=== PATIENT | female | born 1975 | race Caucasian/White ===

== ENCOUNTER 2020-02-07 00:07 | Emergency (ER) | payer SELFPAY ==
--- NOTE | ~2020-02-07 | XR_ITS ---
XR finger 2nd LT min 2V DATE: 02/07/2020 00:43 INDICATION: Finger caught in which. Traumatic amputation. TECHNIQUE: 4 views COMPARISON: None FINDINGS: There is dramatic amputation of the large majority of the tuft of the distal phalanx and di stal soft tissues of the second digit. No radiopaque soft tissue foreign body. No other fracture or any dislocation. IMPRESSION: Traumatic amputation of distal soft tissues and most of the tuft of the distal phalanx of the second digit Reviewed, dictated and finalized at location A.
[2020-02-07 00:13] VITALS: BP 160/89; PULSE 94; RESP 18; TEMP 36.5; O2SAT 100
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
[2020-02-07 00:47] VITALS: BP 152/95; PULSE 78; RESP 18; O2SAT 99
[2020-02-07] MEDS: TETANUS,DIPHTHERIA,AC PERTUSSIS ADULT 0.5 ML (ADACEL) IM (01:05)
--- NOTE | 2020-02-07 01:22 | PC.NURSE ---
Wet gauze and pressure dressing applied to left hand and index finger, continuously bleeding. Physician aware.
[2020-02-07 01:47] VITALS: BP 126/74; PULSE 86; RESP 18; O2SAT 99
== END 2020-02-07 02:14 | disposition short-term general hospital (02) ==
PROVIDERS: Emergency Provider Emergency Medicine
DX: S68.110A Complete traumatic metacarpophalangeal amputation of right index finger, initial encounter (principal); Z23 Encounter for immunization; W26.8XXA Contact with other sharp object(s), not elsewhere classified, initial encounter
CPT/HCPCS: 73140; 90471; 90715; 96365; 99284; J0690

== ENCOUNTER 2024-04-17 14:06 | Emergency (ER) | payer MEDICARE, MEDICAID, SELFPAY ==
--- NOTE | 2024-04-17 14:09 | ED.SKABFB ---
HPI - Skin/Abscess/Foreign Bdy General Chief complaint: Skin/Abscess/Foreign Body Stated complaint: Rash Time Seen by Provider: 04/17/24 14:08 Source: patient Mode of arrival: ambulatory Limitations: no limitations History of Present Illness HPI narrative: Nikki is a 49-year-old female patient presenting to the clinic today with complaints of a rash in her groin. She reports they 1st noticed it yesterday. States she has not felt well over the past week. History of autonomic dysreflexia disease. Thinks that she may have a yeast infection in her groin. Related Data Home Medications Medication Instructions Recorded Confirmed methenamine hippurate 1 gram tablet 1 g PO BID 04/17/24 04/17/24 mirabegron 25 mg tablet,extended 25 mg PO DAILY 04/17/24 04/17/24 release 24 hr (Myrbetriq) tizanidine 4 mg tablet 8 mg PO TID PRN muscle spasms 04/17/24 04/17/24 Allergies Allergy/AdvReac Type Severity Reaction Status Date / Time No Known Allergies Allergy Verified 04/17/24 14:09 Review of Systems Review of Systems: Pertinent positives per HPI. Patient denies any fever, chills, headache, visual changes, dizziness, cough, runny nose, sore throat, shortness of breath, chest pain, palpitations, nausea, vomiting, diarrhea, constipation, abdominal pain, or any urinary issues. PMFSH Past Medical History Medical History Healthy female Surgical History Surgical History History of dilation and curettage Hx of tubal ligation Social History Social History Smoking status: Unknown if ever smoked Gender identity (if verbalized by the patient): Female Comments At the time of my signature, I reviewed and agree with the nursing past medical, surgical, social, and family history. There is no relevant family history pertinent to the patient complaint. Exam Narrative: General: Well-developed, well nourished, in no apparent distress Head: Normocephalic, atraumatic. Cardio: Regular rate and rhythm, s1 and s2 normal, no murmur appreciated. Resp: Clear to auscultation bilaterally, no rhonchi, rales, wheezing or rubs. Integumentary: [place], warm, and dry, intact without lesion, red, warm, glistening beffy rash to the bilateral groin folds Course Course Emergency Course: Portions of this record may have been created with voice recognition software. Level of Care: Express Care Visit Vital Signs Vital signs: Vital signs reviewed MDM - Skin/Abscess/Foreign Bdy MDM Narrative Medical decision making narrative: At the time of visit patient is resting comfortably on the exam table. Patient appears to be nontoxic. Plan: I suspect patient has tinea crucians. Prescription for nystatin and Diflucan was sent to the pharmacy Supportive measures were discussed with the patient and they voiced understanding discharge instructions and agrees to treatment plan. Return precautions reviewed Differential Diagnosis Differential diagnosis: Likely abscess of skin or subcutaneous tissue, viral exanthem, dermatophytosis, urticaria, herpes zoster, allergic reaction to drug, cellulitis, eczema, insect bites, impetigo and contact dermatitis Discharge Plan Discharge Clinical Impression: Lorie infection of genital region Patient Disposition: Home, Self-Care Condition: Stable Instructions: Antibiotic Form, Skin Yeast Infection (ED) Additional Instructions: Increase fluids and stay well hydrated Keep the area clean and dry Apply nystatin powder as directed Take fluconazole 200 mg weekly x4 weeks Follow-up with your primary care as needed Prescriptions: New nystatin 100,000 unit/gram powder 1 applic topical QID 14 Days Qty: 60 0RF fluconazole 200 mg tablet 200 mg PO WEEKLY 28 Days Qty: 4 0RF No Action tizanidine 4 mg tablet
[2024-04-17 14:20] VITALS: BP 100/58; PULSE 106; RESP 18; TEMP 36.5; O2SAT 98
== END 2024-04-17 14:46 | disposition home or self-care (01) ==
PROVIDERS: Emergency Provider Nurse Practitioner Family; PCP Physician Assistant
DX: B37.49 Other urogenital candidiasis (principal); G90.4 Autonomic dysreflexia
CPT/HCPCS: 99213; G0463

== ENCOUNTER 2024-12-06 12:29 | Emergency (ER) | payer MEDICARE, MEDICAID, SELFPAY ==
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
[2024-12-06 12:47] VITALS: BP 118/78; PULSE 87; RESP 16; TEMP 36.6; O2SAT 98
[2024-12-06 13:27] LABS: EDUAAPPEAR Clear; EDUABILI Negative (Negative); EDUABLOOD 3+ (Negative); EDUACOLOR1 Yellow; EDUAGLUCOSE Negative (Negative); EDUAKETONE Negative (Negative); EDUALEUKO 2+ (Negative); EDUANITRATE Negative (Negative); EDUAPROTEIN Negative (Negative); EDUASPGRAVITY 1.015; EDUAUROBILI 0.2
--- NOTE | 2024-12-06 16:02 | PC.NURSE ---
1340: Suprapubic catheter urine bag removed and tube clamped for 15 minutes. Tip cleaned with betadine and urine collected into sterile urine cup. Urine bag then replaced with no issues.
== END 2024-12-06 13:40 | disposition home or self-care (01) ==
PROVIDERS: Emergency Provider Nurse Practitioner Family; PCP Physician Assistant
DX: T83.518A Infection and inflammatory reaction due to other urinary catheter, initial encounter (principal); N39.0 Urinary tract infection, site not specified
CPT/HCPCS: 81003; 87086; 99213; G0463

== ENCOUNTER 2025-03-10 23:12 | Emergency (ER) | payer MEDICARE, MEDICAID, SELFPAY ==
--- OUTSIDE RECORDS SUMMARY | 2025-03-10 23:15 | XMS_ITS | Encounter Summary ---
Author Organization [facility] Address [address] [place] [address] Phone Care Team Providers Care Director Of Archives Name Role Phone Provider, None Primary Care Provider Unavailabl e Encounter Details Date Type Department Care Team (Late st Contact Info) Description 12/27/2023 Behavioral Health Patient Survey [facility] [address] [place] [id number] Umair Li PSYD [place] Social History Tobacco Use Types Packs/Day Years Used Date Smoking Tobacco: Former Cigarettes Q uit: 08/23/2020 Smokeless Tobacco: Never Alcohol Use Standard Drinks/Week Comments Yes 0 (1 standard drink = 0.6 oz pur e alcohol) Very rare, about 1x per year Sexually Active Control Partners Comments Not Currently Male Patient is cur rently unable to feel sensation in lower part of body, and sexual activity with is sharply reduced. Comments Unknown Sex and Gender Information Value Date Recorded Sex Assigned at Not on file Legal Sex Female 2:41 PM CDT Gender Identity Not on file Sexual Orientation Not on file documented as of this encounter Plan of Treatment Upcoming Encounters Date Type Department Care Team (Latest Contact Info) Description 03/29/2025 1:00 PM CDT Outpatient Clinic Visit [facility] [address] [place] [phone] Umair Li PSYD [place] Discharge Disposition: Discharged to home or Selfcare 04/28/2025 1:45 PM CDT Outpatient Clinic Visit [facility] [address] [place] [address] Umair Li PSYD [place] Discharge Disposition: Discharged to home or Selfcare documented as of this encounter Goals Goal Patient Goal Type Associated Problems Recent Progress Patient-Stated? Author ANXIETY Anxiety On track( 025 1:04 PM CDT) No Umair Li PSYD Note: Patient will reduce her symptoms of anxiety to manageable levels and learn new coping skills for dealing with life post-injury. Depression Depression On track( 025 1:04 PM CDT) Yes Umair Li PSYD Note: Patient states she wishes to reduce her feelings of sadness and learn to control her emotions. She no longer wishes to live in fear. documented as of this encounter Visit Diagnoses Not on filedocumented in this encounter Care Teams Director Of Archives Relationship Specialty Start Date End Date Provider, None [place] PCP - General 05/02/22 documented as of this encounter
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
--- OUTSIDE RECORDS SUMMARY | 2025-03-10 23:15 | XMS_ITS | Clinical Summary ---
Author Organization [facility] Address [address] [place] [address] Care Team Providers Care Floral Manager Name Role Phone Provider, None Primary Care Provider Unavailabl e Allergies No known active allergies Medications No known medications Active Problems Problem Noted Date Diagnosed Date Paralysis Encounters Date Type Department Care Team Description 02/23/2025 1:00 PM CDT Outpatient Clinic [facility] [address] [place] [phone] Umair Li PSYD Major depressive disorder, recurrent, mild (HCC) (Primary Dx) Discharge Disposition: Discharged to home or Selfcare 02/23/2025 Travel 02/02/2025 1:00 PM CDT Outpatient Clinic Visit [facility] [address] [place] [phone] Umair Li PSYD Major depressive disorder, recurrent, mild (HCC) (Primary Dx) Discharge Disposition: Discharged to home or Selfcare 02/01/2025 Travel 01/05/2025 1:00 PM ACCOUNT EXECUTIVE SALES REPRESENTATIVE Outpatient Clinic Visit [facility] [address] [place] [address] Umair Li PSYD Adjustment disorder with depressed mood (Primary Dx) Discharge Disposition: Discharged to home or Selfcare 01/03/2025 Travel from Last 3 Months Family History Medical History Relation Name Comments Anxiety disorder Mother Ursula Relation Name Status Comments Brother 1 Alive Brother 2 Alive Daughter 1 Alive Daughter 2 Alive Father King Alive Mother Ursula Alive Sister 1 Alive Sister 2 Alive Sister 3 Alive Son 1 Alive Son 2 Alive Social History Tobacco Use Types Packs/Day Years Used Date Smoking Tobacco: Former Cigarettes Q uit: 08/23/2020 Smokeless Tobacco: Never Tobacco Cessation:Counseling Given: No Alcohol Use Standard Drinks/Week Comments Yes 0 [...] on file Sexual Orientation Not on file Plan of Treatment Upcoming Encounters Date Type Department Care Team (Latest Contact Info) Description 03/29/2025 1:00 PM CDT [facility] [address] [place] [address] Umair Li PSYD [place] Discharge Disposition: Discharged to home or Selfcare 04/28/2025 1:45 PM CDT [facility] [address] [place] [address] Umair Li PSYD [place] Discharge Disposition: Discharged to home or Selfcare Health Maintenance Due Date Last Done Comments Hepatitis C Virus (HCV) Screening 1973 Hepatitis B Immunization (1 of 3 - 19+ 3-dose series) 1992 Pap Smear 1994 Cervical Cancer Screening (CCS) 2003 HPV/Cotest 2003 Colonoscopy 2018 Colorectal Cancer Screening 2018 Cologuard 2023 Immunochemical Fecal Occult Blood 2023 Pneumococcal Immunization (5 0+ years) (1 of 1 - PCV) 2023 Zoster Immunization (1 of 2) 2023 SARS-COV-2 Immunization (3 - 2023- season) 2024 03/22/2021, 03/02/2021 Influenza Immunization (Seas on Ended) 2025 Mammogram 02/01/2026 02/01/2025 Respiratory Syncytial Virus (RSV) Immunization (Adult) (1 - 1-dose 75+ series) 2048 DTaP/Tdap/Td Immunization Discontinued 02/07/2020 TdaP Immunization Completed 02/07/2020 Discussion re Starting/Frequency of Mammograms Discontinued 02/01/2025 Meningococcal Immunization (ACWY) Aged Out No longer eligible based on patient's age to complete this topic Rotavirus Immunization Aged Out No lo nger eligible based on patient's age to complete this topic Goals Goal Patient Goal Type Associated Problems Recent Progress Patient-Stated? Author ANXIETY Anxiety On track( 1:04 PM CDT) No Umair Li PSYD Note: Patient will reduce her symptoms of anxiety to manageable levels and learn new coping skills for dealing with life post-injury. Behavioral Health Behavioral Health On track( 025 1:04 PM CDT) Yes Umair Li PSYD Note: I want my smile back, by which she meant to return to a level of general happiness. Depression Depression On track( 025 1:04 PM CDT) Yes Umair Li PSYD Note: Patient states she wishes to reduce her feelings of sadness and learn to control her emotions. She no longer wishes to live in fear. Insurance [place] [address] Care Teams Floral Manager Relationship Specialty Start Date End Date Provider, None [place] PCP - General 05/02/22
--- OUTSIDE RECORDS SUMMARY | 2025-03-10 23:15 | XMS_ITS | Encounter Summary ---
Author Organization [facility] Address [address] [facility] [place] [address] Phone Care Team Providers Care Construction Or Leak Gang Laborer Name Role Phone Provider, None Primary Care Provider Unavailabl e Encounter Details Date Type Department Care Team ( Contact Info) Description 09/10/2023 Behavioral Health Patient Survey [facility] [address] [place] [phone] Umair Li, ISRAEL MD Social History Tobacco Use Types Packs/Day Years [...] on file Sexual Orientation Not on file COVID-19 Exposure Response Date Recorded In the last 10 days, have yo u been in contact with someone who was confirmed or suspected to have Coronavirus/COVID-19? No / Unsure 09/10/2023 10:51 AM CDT documented as of this encounter Plan of Treatment Upcoming Encounters Date Type Department Care Team (Latest Contact Info) Description 03/29/2025 1:00 PM CDT Outpatient Clinic Visit [facility] [address] [facility] [place] [address] Umair Li PSYD [place] Discharge Disposition: Discharged to home or Selfcare 04/28/2025 1:45 PM CDT Outpatient [facility] [address] [facility] [place] [address] Umair Li PSYD [place] Discharge Disposition: Discharged [...] on filedocumented in this encounter Care Teams Construction Or Leak Gang Laborer Relationship Specialty Start Date End Date Provider, None [place] PCP - General 05/02/22 documented as of this encounter
--- OUTSIDE RECORDS SUMMARY | 2025-03-10 23:15 | XMS_ITS | Encounter Summary ---
Author Organization [facility] Address [address] [facility] [place] [address] Phone Care Team Providers Care Motor Equipment Captain Name Role Phone Provider, None Primary Care Provider Unavailabl e Encounter Details Date Type Department Care Team (Late st Contact Info) Description 02/05/2024 Behavioral Health Patient Survey [facility] [address] [place] [phone] Umair Li PSYD [place] Social History Tobacco [...] 03/29/2025 1:00 PM CDT Outpatient Clinic Visit [facility] [address] [place] [address] Umair Li PSYD [place] Discharge Disposition: Discharged to home or Selfcare 04/28/2025 1:45 PM CDT Outpatient Clinic Visit [facility] [address] [place] [address] Umair Li PSYD [place] Discharge Disposition: Discharged to home or Selfcare [...] on filedocumented in this encounter Care Teams Motor Equipment Captain Relationship Specialty Start Date End Date Provider, None [place] PCP - General 05/02/22 documented as of this encounter
--- OUTSIDE RECORDS SUMMARY | 2025-03-10 23:15 | XMS_ITS | Encounter Summary ---
Author Organization [facility] Address [address] [facility] [place] [address] Phone Care Team Providers Care Rehabilitator Name Role Phone Provider, None Primary Care Provider Unavailabl e Encounter Details Date Type Department Care Team (Late st Contact Info) Description 04/02/2024 Behavioral Health Patient Survey [facility] [address] [place] [phone] Umair Li PSYD [place] Social History Tobacco Use Types Packs/Day Years [...] on file documented as of this encounter Functional Status * Over the past 2 weeks, how often have you been bothered by any of the following problems? Question Answer Date of Assessment Author Patient Health Questionnaire-2 Score 0 04/02/2024 1:00 PM CDT Umair Li Sa, PSYD * If you checked off any problems on this questionnaire so far, Question Answer Date of Assessment Author How difficult have these problems made it for you to do your work, take care of things at home, or get along with other people? Somewhat difficult 04/02/2024 1:00 PM CDUmair Geiger PSYD * Over the last 2 weeks, how often have you been bothered by any of the following problems? Question Answer Date of Assessment Author Feeling nervous, anxious, or on edge 1 04/02/2024 1:00 PM CDUmair Geiger, PSYD Not being able to stop or control worrying 1 04/02/2024 1:00 PM Umair Low, PSHERMELINDA Worrying too much about different things 3 04/02/2024 1:00 PM Umair Low PSYD Trouble relaxing 1 04/02/2024 1:00 PM CDUmair Wallace PSYD Being so restless that it is hard to sit still 0 04/02/2024 1:00 PM Umair Low PSYD Becoming easily annoyed or irritable 0 04/02/2024 1:00 PM Umair Low, PSHERMELINDA Feeling afraid as if something awful might happen 0 04/02/2024 1:00 PM Umair Low PSYD GELA-7 Total Score 6 04/02/2024 1:00 PM Umair Low PSYD * Over the past 2 weeks, how often have you been bothered by any of the following problems? Question Answer Date of Assessment Author Little interest or pleasure in doing things Not at all 04/02/2024 1:00 PM Umair Low PSYD Feeling down, depressed, or hopeless Not at all 04/02/2024 1:00 PM Umair Low PSYD Trouble falling or staying asleep, or sleeping too much Not at all 04/02/2024 1:00 PM Umair Low PSYD Feeling tired or having little energy Several days 04/02/2024 1:00 PM Umair Low PSYD Poor appetite or overeating Not at all 04/02/2024 1: 00 PM CDT Umair Li PSYD Feeling bad about yourself - or that you are a failure or have let yourself or your family down Several days 04/02/2024 1:00 PM LELOT Umair Li PSYD Trouble concentrating on things, such as reading the newspaper or watching television Not at all 04/02/2024 1:00 PM LELOT Umair Li PSYD Moving or speaking so slowly that other people could have noticed? Or the opposite - being so fidgety or restless that you have been moving around a lot more than usual. Several days 04/02/2024 1:00 PM LELOT Umair Li PSYD Thoughts that you would be better off or hurting yourself in some way Not at all 04/02/2024 1:00 PM LELOT Umair Li PSYD Patient Health Questionnaire-9 Score 3 04/02/2024 1:00 PM CDT Umair Li Sa, PSYD documented as of this encounter Plan of Treatment Upcoming Encounters Date Type Department Care Team (Latest Contact Info) Description 03/29/2025 1:00 PM CDT Outpatient Clinic Visit [facility] [address] [place] [phone] Umair Li PSYD [place] Discharge Disposition: Discharged to home or Selfcare 04/28/2025 1:45 PM CDT Outpatient Clinic Visit [facility] [address] [place] [phone] Umair Li PSYD [place] Discharge Disposition: Discharged [...] on filedocumented in this encounter Care Teams Rehabilitator Relationship Specialty Start Date End Date Provider, None [place] PCP - General 05/02/22 documented as of this encounter
--- OUTSIDE RECORDS SUMMARY | 2025-03-10 23:15 | XMS_ITS | Referral Summary ---
Author Organization [facility] Address [address] [place] [address] Care Team Providers Care Investment Executive Name Role Phone Brit Hong Primary Care Provider + Shaista Maria DPT Unavail able Encounters Date Type Department Care Team Description 03/04/2025 8:22 PM CDT - 03/04/2025 10:24 PM CDT Emergency [facility] Emergency Department [address] [place] [address] Suprapubic catheter dysfunction, initial encounter (Primary Dx); Abnormal urinalysis Discharge Disposition: Discharge to home or self care 02/18/2025 Telephone [facility] [address] [place] [address] Advanced Medicine 11th [place] [address] [place] [id number] Federico Mark 02/17/2025 10:20 AM CDT Telemedicine [facility] [address] [facility] [address] [place] [address] Aftab Suazo MD Neurogenic bladder (Primary Dx); Obstruction of Moctezuma catheter, subsequent encounter 02/09/2025 Telephone [facility] [address] [facility] [address] [place] [address] Mckenzie Campos MD 02/09/2025 Telephone [facility] [address] [place] [address] Miesha Modi, [facility] 02/01/2025 2:11 PM CDT - 02/01/2025 11:59 PM CDT Hospital Encounter [facility] [address] [place] [address] Krysta Chung MD Encounter for well woman exam; Encounter for screening mammogram for malignant neoplasm of breast Discharge Disposition: Discharge to home or self care from Last 3 Months Allergies Active Allergy Reactions Criticality Noted Date Comments Cat Dander Itching Low 08/01/2022 Medications Vitamin C 500 mg tablet,chewable Take 1 tablet/chew tab (500 mg total) by mouth every morning 09/29/20 20 Active albuterol 2.5 mg /3 mL (0.083 %) nebulizer solution Inhale 3 mL (2.5 mg total) every 6 (six) hours as needed for shortness of breath or wheezing 08/01/20 21 Active HYDROcodone-acetam inophen (VICODIN) 10-300 mg per tabletIndications: Pain Take 1 tablet by mouth daily as needed Active calcium citrate-vitamin D2 250 mg-2.5 mcg (100 unit) per tabletIndications: Hypocalcemia Prevention,Prevent ion of Vitamin D Deficiency Take 1 tablet by mouth every morning Active tiZANidine (ZANAFLEX) 4 mg tabletIndications: Muscle Spasticity of Spinal Origin Take 2 tablets (8 mg total) by mouth every 8 (eight) hours as needed for muscle spasms 180 tablet 01/14/20 23 Active Additional Information Patient not taking.Informant: Self, Reported on 10/28/2024 cyclobenzaprine (FLEXERIL) 10 mg tabletIndications: Muscle Spasm Take 1 tablet (10 mg total) by mouth 3 (three) times a day as needed for muscle spasms 90 tablet 01/14/20 23 Active Additional Information Patient not taking.Informant: Self, Reported on 10/28/2024 mirabegron ER (MYRBETRIQ) 25 mg tablet extended release 24 hrIndications:Blad sofía Hyperactivity,Urin chitra Urgency,neurogenic bladder due to spinal cord injury Take 1 tablet (25 mg total) by mouth daily 30 tablet 11 05/29/20 23 Active Additional Information Patient not taking.Informant: Self, Reported on 10/28/2024 cranberry 400 mg capsuleIndications :supplement Take 1 capsule by mouth every morning Active Stimulant Laxative Plus 8.6-50 mg Take 1 tablet by mouth 2 (two) times a day 11/04/20 23 Active ondansetron ODT (ZOFRAN-ODT) 4 mg disintegrating tablet Take 1 tablet (4 mg total) by mouth every 8 (eight) hours as needed for nausea or vomiting 28 tablet 2 02/13/20 24 Active Additional Information Patient not taking.Informant: Self, Reported on 10/28/2024 methenamine (HIPREX) 1 gram tabletIndications: Prophylaxis, Medical Take 1 tablet (1 g total) by mouth every morning 01/31/20 24 Active acidophilus-pectin , citrus 100 million cell-10 mg capsuleIndications :bowel health Take 1 capsule by mouth every morning Active cholecalciferol, vitamin D3, (VITAMIN D3 ORAL)Indications:s upplement Take 1 capsule by mouth every morning Active herbal drugs tabletIndications: supplement Take 1 tablet by mouth nightly D-mannose Active miscellaneous medical supply misc 2 way Latex moctezuma catheter 16 Fr catheter Kit Change catheter every 3-4 weeks, prn 5 each 3 09/29/20 24 Active Additional Information Patient not taking.Reported on 10/28/2024 oxyBUTYnin XL (DITROPAN-XL) 10 mg 24 hr tablet Take 1 tablet (10 mg total) by mouth daily 90 tablet 3 02/19/20 25 026 Active Active Problems Problem Noted Date Diagnosed Date Encounter for well woman exam 01/31/2024 Assessment & Plan (01/31/2024 9:25 AM FIGURE REFINISHER AND REPAIRER): - Last Pap NILM, HPV pos 12/2023 - Sexually active: not after spinal cord injury and paraplegia - Vaginal discharge or irritation: not bothersome to patient, no sensation to lower half of body - Concern for postmenopausal bleeding vs urethral irritation - Routine STI testing offered, declined - Mammogram: over due, clinical breast exam performed, and recommended screening mammogram, concern for patient and partner for her to remain in her wheelchair for the mammogram, comment made in order in inquire about accommodations for patient - Colon cancer screening: cologuard 2022 negative - Dexa: due at 63 - Covid-19 vaccination recommendations reviewed Abnormal uterine bleeding (AUB) 11/28/2023 Assessment & Plan (01/31/2024 9:29 AM FIGURE REFINISHER AND REPAIRER): Concern for postmenopausal bleeding Spotting episodes that patient and partner believe are due to self- catheterization Pelvic US performed, reviewed findings with patient, EMS 5.9 mm, counseling provided thickened in postmenopausal patient Offered EMB Patient defers for now and prefers to monitor her symptoms with consideration for EMB with additional episodes Assessment & Plan (11/30/2023 10:27 AM FIGURE REFINISHER AND REPAIRER): -pt reports last menstrual period was 11/2022, spouse reports she has had a couple episodes of light bleeding since. Will obtain pelvic US. Fracture of tibial plateau 07/16/2023 Paralysis 03/14/2023 03/14/2023 E. coli UTI 03/09/2023 03/14/2023 Recurrent UTI 03/08/2023 03/14/2023 Assessment & Plan (11/30/2023 10:32 AM FIGURE REFINISHER AND REPAIRER): She was instructed to call our office with signs or symptoms of an UTI. A urine specimen will be sent to assess for an UTI. Empiric treatment will be started if indicated based on symptoms. We discussed UTI prevention strategies including use of vaginal estrogen, Vitamin C supplementation, D-mannose, methenamine, cranberry tablet supplementation, voiding after intercourse, scheduled voiding every 2-3 hours, and antibiotic suppression. She will plan to use the following UTI prevention strategies: Vitamin C supplementation, D-mannose, and methenamine as well as scheduled CISC. last UTI 3 weeks ago following Gentamicin bladder instillations x6 (which they performed at home), asks about regular instillations for UTI prevention. Advised I would discuss at next Urogyn conference and let him know. plan to start VET pending result of pelvic US for AUB discussed that her bladder likely colonized secondary to CISC and would recommend only testing urine in the future with definite UTI symptoms, her primary symptom is sudden worsening in UI consider cystoscopy, discuss at next follow up Allergies 09/07/2022 03/14/2023 Overview (03/14/2023): Last Assessment & Plan: Condition: stable Follow up in: if symptoms worsen or fail to improve Asthma 09/07/2022 03/14/2023 Overview (03/14/2023): Last Assessment & Plan: Condition: stable Reviewed trigger avoidance and reviewed proper use of inhalers and rescue medications. Reviewed concerning signs/symptoms and ER precautions. Follow up in: if symptoms worsen or fail to improve Muscle spasticity 08/28/2021 Tetraplegia 08/28/2021 Neurogenic bowel 08/28/2021 Neurogenic bladder 08/28/2021 Assessment & Plan (11/30/2023 10:30 AM FIGURE REFINISHER AND REPAIRER): -currently on Myrbetriq and performs intermittent CISC, reports increased difficulty in performing CISC and inquires about alternate options. He reports interest in ISC via abdomen which sounds like Mitranoff procedure. I will refer them to urology. SIERRA (dyspnea on exertion) 02/01/20212022 Respiratory failure 02/01/2021 03/14/2023 PICC (peripherally inserted central catheter) in place 01/20/2021 03/14/2023 Acute osteomyelitis of sacrum 01/10/2021 Osteomyelitis 11/23/2020 Pressure injury of sacral region, stage 4 2019 Cerebrovascular accident (CV A) due to embolism of left middle cerebral artery 07/28/2020 03/14/2023 Acute respiratory failure with hypoxia and hyper capnia 07/23/2020 03/14/2023 Adrenal hemorrhage 07/23/2020 03/14/2023 Closed fracture of seventh c ervical vertebra with routine healing 07/23/2020 03/14/2023 Closed fracture of transvers e process of thoracic vertebra with routine healing 07/23/2020 03/14/2023 Closed nondisplaced fracture of body of right sc apula 07/23/2020 03/14/2023 Closed traumatic compression fracture of thoraci c vertebra 07/23/2020 03/14/2023 Contusion of both lungs 07/23/2020 03/14/20 Crush injury 07/23/2020 03/14/2023 Lung laceration 07/23/2020 03/14/2023 Multiple fractures of ribs, bilateral, initial encounter for closed fracture 07/23/2020 03/14/2023 Traumatic injury of spinal cord at T1-T6 level 0 07/23/2020 03/14/2023 Resolved Problems Problem Noted Date Diagnosed Date Resolved Date Paraplegia 07/21/2021 01/18/2023 Spasticity 07/21/2021 01/18/2023 Immunizations Immunization Administration Dates Next Due Tdap 02/07/2020 Social History Tobacco Use Types Packs/Day Years Used Date Smoking Tobacco: Former Cigarettes 0.5 10 2 2019 Smokeless Tobacco: Never Tobacco Cessation:Counseling Given: No AUDIT-C Answer Date Recorded Q1: How often do you have a drink containing alc ohol? Monthly or less 04/06/2024 Q2: How many drinks containi ng alcohol do you have on a typical day when you are drinking? 1 or 2 04/06/2024 Q3: How often do you have si x or more drinks on one occasion? Never 04/06/2024 Personal Safety Answer Date Recorded Have you ever been in or are you currently in a harmful physical or emotional relationship or is someone making you feel afraid or unsafe? Denies 03/04/2025 Comments No Sex and Gender Information Value Date Recorded Sex Assigned at Not on file Legal Sex Female 6:23 PM FIGURE REFINISHER AND REPAIRER Gender Identity Not on file Sexual Orientation Not on file Last Filed Vital Signs Vital Sign Reading Time Taken Comments Blood Pressure 120/84 03/04/2025 10:22 PM CDT Pulse 78 03/04/2025 10:22 PM CDT Temperature 36.7 C (98 F) 03/04/2025 10:22 PM CDT Respiratory Rate 17 03/04/2025 10:22 PM CDT Oxygen Saturation 97% 03/04/2025 10:22 PM CDT Inhaled Oxygen Concentration - - Weight 68 kg (149 lb 14.6 oz) 03/04/2025 8:20 PM CDT Height 175.3 cm (5' 9 ) 10/28/2024 1:41 PM FIGURE REFINISHER AND REPAIRER Body Mass Index 22.14 10/28/2024 1:41 PM FIGURE REFINISHER AND REPAIRER Plan of Treatment Not on file Procedures Procedure Name Priority Date/Time Associated Diagnosis Comments URINALYSIS, MICROSCOPIC ONLY STAT 03/04/2025 9:43 PM CDT URINALYSIS AND REFLEX TO MICROSCOPIC AND CULTURE STAT 03/04/2025 9:43 PM CDT SCREENING MAMMOGRAM BILATERAL W PAVAN Schedule Routine, Read Routine (OP Routine) 02/01/2025 2:46 PM CDT Encounter for well woman exam Encounter for screening mammogram for malignant neoplasm of breast HIGH RISK HPV DNA DETECTION WITH GENOTYPING Routine 01/02/2024 11:03 AM FIGURE REFINISHER AND REPAIRER Screening for cervical cancer from Last 3 Months or Most Recently Relevant to Health Maintenance Results * (ABNORMAL) Urinalysis reflex to microscopic and culture Urine (03/04/2025 9:43 PM CDT) Color, ur Straw Yellow Clarity, ur Clear Clear [facility]) Specific gravity, ur 1.003 1.003 - 1.030 [facility] pH, urine 7.5 [facility] Comment: Interpretive Data U rine pH is affected by diet, medications, systemic acid-base disturbances, and renal tubular function. pH may affect urinary stone formation. For example, urine pH below 6.0 may help reduce the tendency for calcium phosphate stones and pH greater than 6.0 may reduce the tendency for uric acid stone formation. Source: [place] [employer] Current Interpretive Data was last revised on 2017 Protein, ur ql Negative Negative [facility] Glucose, ur ql Negative Negative [facility] Ketones, ur Negative Negative [facility] Bilirubin, ur Negative Negative [facility] Blood, ur 2+(A) Negative [facility] Urobilinogen, ur <2.0 <2.0 mg/dL [facility] Nitrite, ur Positive(A) Negative [facility] Leukocyte esterase, ur 3+(A) Negative [facility]) UA reflex comment Reflex to microscopic UA will be performed. [facility] Urine 03/04/2025 9:43 PM CDT 03/04/2025 9:47 PM CDT [facility] MICROBIOLOGY - GENERAL ORDERABLES Final Result Performing Organization Address [facility] de Phone Number [facility] ([place] [address] [place] [address] [place] [address] * (ABNORMAL) Urinalysis, microscopic only (03/04/2025 9:43 PM CDT) WBC, ur 0-5 0 - 5 /HPF RBC, ur 0-2 0 - 2 /HPF [facility] Amorphous crystals, ur Trace(A) [facility] Culture Reflex Comment Reflex conditions for urine culture (WBC >10) not met. [facility] ([place]) Urine 03/04/2025 9:43 PM CDT 03/04/2025 9:47 PM CDT [facility] URINE ORDERABLES Final Result Performing Organization Address [facility] de Phone Number [facility] [address] [place] [address] [place] [address] * Screening Mammogram Bilateral W Pavan (02/01/2025 2:46 PM CDT) Anatomical Region Laterality Modality Breast Bilateral Mammography Narrative 02/02/2025 12:19 PM CDT Mammogram Technique: Bilateral Digital Breast Tomosynthesis, Bilateral C-view 2D Screening mammogram. Views obtained: bilateral craniocaudal and bilateral mediolateral oblique. Computer Aided Detection was performed. Mammogram Findings: This is a baseline study. The breasts are heterogeneously dense, which may obscure small masses. There is no suspicious abnormality in either breast. Impression: There is no mammographic evidence of malignancy. Annual screening mammography is recommended. If supplemental screening is desired, breast MRI would be recommended in this patient with heterogeneously dense breasts. OVERALL FINAL ASSESSMENT: BI-RADS CATEGORY 1: Negative. Procedure Note Shara Payne MD - 02/02/2025 Mammogram Technique: Bilateral Digital Breast Tomosynthesis, Bilateral C-view 2D Screening mammogram. Views obtained: bilateral craniocaudal and bilateral mediolateral oblique. Computer Aided Detection was performed. Mammogram Findings: This is a baseline study. The breasts are heterogeneously dense, which may obscure small masses. There is no suspicious abnormality in either breast. Impression: There is no mammographic evidence of malignancy. Annual screening mammography is recommended. If supplemental screeningis desired, breast MRI would be recommended in this patient with heterogeneously dense breasts. OVERALL FINAL ASSESSMENT: BI-RADS CATEGORY 1: Negative. Krysta Chung MD [facility] F inal Result * (ABNORMAL) High Risk HPV DNA Detection with Genotyping (Molecular component) (01/02/2024 11:03 AM FIGURE REFINISHER AND REPAIRER) HPV HR 16 Not Detected Not Detected [facility] HPV HR 18 Not Detected Not Detected [facility] HPV HR Non 16/18 Detected(A) Not Detected [facility] Comment: Interpretive Data Nucleic acid amplification for detection of high-risk Human Papilloma virus (HPV) is performed by the Sarah Kumar 6800 HPV test. This assay specifically detects HPV-16 and HPV-18 genotypes. The following HPV genotypes are detected as high-risk HPV: HPV-31, 33, 35, ,39, 45, 51, 52, 56, 58, 59, 66, and 68. This assay has been approved by the [place] Food and Drug Administration for detection of HPV in cervical specimens collected by a physician using an endocervical brush/spatula or cervical broom and placed in the ThinPrep Pap Test PreservCyt collection containers. The performance characteristics of this test have been verified by the [facility] laboratory. Correlate with separately reported cytology results, as applicable. Interpretive data last revised 23 Endocervical 01/02/2024 11:0 3 AM FIGURE REFINISHER AND REPAIRER 01/08/2024 3:52 PM FIGURE REFINISHER AND REPAIRER Narrative REGINO FINNEY - 01/09/2024 4:24 AM FIGURE REFINISHER AND REPAIRER Clinical history and diagnosis->last pap sparsely cellular sample with positive HPV Testing type->Screening Last menstrual period (date if known)->Unknown Menstrual status->Irregular Marce Carpenter NP LAB BODY FLUIDS AND STOOLS ORD ERABLES Final Result [facility] [place] [address] from Last 3 Months or Most Recently Relevant to Health Maintenance Insurance [employer] MEDICARE IDIN Care Teams Investment Executive Relationship Specialty Start Date End Date Brit Hong PA PCP - General Physician Director Of Strategy & Mobile 04/28/21 Shaista Maria DPT [id number] [facility], [address] [address] Physical Therapist Physical Therapy 01/29/24
--- OUTSIDE RECORDS SUMMARY | 2025-03-10 23:15 | XMS_ITS | Clinical Summary ---
Author Organization [facility] Address [address] [place] [phone] Phone Care Team Providers Care Test Designer Name Role Phone Unavailable Primary Care Provider Unavailabl e Allergies No known active allergies Medications diphenhydrAMINE (BENADRYL) 25 mg tabletIndication s:allergies Take 25 mg by mouth daily at bedtime. 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 level 0 07/23/2020 Hemothorax on right 07/23/2020 Paraplegia, complete 07/23/2020 Adrenal hemorrhage, right 07/23/2020 Contusion of both lungs 07/23/2020 Lung laceration, right 07/23/2020 Closed nondisplaced fracture of body of right sc apula 07/23/2020 Closed fracture of seventh c ervical vertebra with routine healing, C7 spinous process 07/23/2020 Closed fracture of transvers e process of thoracic vertebra with routine healing, right T1-T4 07/23/2020 Closed traumatic compression fracture of thoracic vertebra, T 5/6 07/23/2020 Respiratory failure SIERRA (dyspnea on exertion) Social History Tobacco Use Types Packs/Day Years Used Date Smoking Tobacco: Every Day Cigarettes Smokeless Tobacco: Never Tobacco Cessation:Ready to Q uit: No; Counseling Given: No Alcohol Use Standard Drinks/Week Comments Not Currently 0 (1 standard drink = 0.6 oz pur e alcohol) Comments Unknown Sex and Gender Information Value Date Recorded Sex Assigned at Not on file Legal Sex Female 4:00 PM CDT Gender Identity Not on file Sexual Orientation Not on file Last Filed Vital Signs Vital Sign Reading Time Taken Comments Blood Pressure 104/64 08/23/2020 6:11 AM CDT Pulse 72 08/23/2020 6:11 AM CDT Temperature 36.7 C (98 F) 08/23/2020 6:11 AM CDT Respiratory Rate 16 08/23/2020 6:11 AM CDT Oxygen Saturation 97% 08/23/2020 6:11 AM CDT Inhaled Oxygen Concentration - - Weight 69 kg (152 lb 1.6 oz) 08/11/2020 3:59 AM CDT Height 165.1 cm (5' 5 ) 08/04/2020 8:48 AM CDT Body Mass Index 25.31 08/04/2020 8:48 AM CDT Plan of Treatment Health Maintenance Due Date Last Done Comments DTAP/TDAP/TD VACCINES (1 - Tdap) 1992 HEPATITIS B VACCINES (1 of 3 - 19+ 3-dose series) 11/1991 HPV/Cotest (21-29) 1994 CERVICAL CANCER SCREENING 2003 HPV/Cotest (30-65) 2003 PAP SMEAR 2003 BREAST CANCER SCREENING 2013 COLORECTAL SCREENING 2018 Colorectal Cancer Screening 2018 FIT-DNA Q 3 years 2018 FIT/FOBT Q 1 year 2018 Flex Sig/CT Colonography Q 5 years 2018 ZOSTER VACCINE (1 of 2) 2023 INFLUENZA VACCINE (#1) 2024 Medical Devices Implanted Type Area Legislative Director Device Identifier Shelf Expiration Date Model / Serial / Lot Hemostatic Surgiflo 8ml W/Thrombin 299 - [id number] Implanted:Qty: 1 on 07/23/2020 by Reece Contreras MD at [facility] Hemostatic N/A: Back J[employer]J- [employer] 04/24/2021 2994 / / [id number] Hemostatic Surgifoam Sz100 1973 - [id number] Implanted:Qty: 1 on 07/23/2020 by Reece Contreras MD at [facility] Hemostatic J[employer]J- [employer] 10/26/20231973 / / [id number] Plate Skilled Nursing Iexp Ti 25-40mm 502-- - [id number] Implanted:Qty: 2 on 07/23/2020 by Reece Contreras MD at [facility] Plate N/A: Back [employer]- [employer] / / LOAD#23; STERILIZED 07/23/2020 Cocr Rods Implanted:Qty: 2 on 07/23/2020 by Reece Contreras MD at [facility] Armando N/A: Back [employer]- [employer] - / [id number] / LOAD # 23; STERILIZED 07/23/2020 Screw Xpdm Verse 5x45mm - [id number] Implanted:Qty: 5 on 07/23/2020 by Reece Contreras MD at [facility] Screw N/A: Back [employer]- [employer] / / LOAD #4/12; STERILIZED 07/19/2020 Set Screw Xpdm Verse 5.5mm - [id number] Implanted:Qty: 8 on 07/23/2020 by Reece Contreras MD at [facility] Screw N/A: Back [employer]- [employer] / / LOAD #4/12; STERILIZED 07/19/2020 Screw Iexp Ti Skilled Nursing X25 200 - [id number] Implanted:Qty: 4 on 07/23/2020 by Reece Contreras MD at [facility] Screw N/A: Back J[employer]J- [employer] [id number] / / LOAD#23; STERILIZED 07/23/2020 Description:All Depuy spinal hardware was processed on requisition [id number]. Screw Xpdm Verse 5x40mm - [id number] Implanted:Qty: 3 on 07/23/2020 by Reece Contreras MD at [facility] Screw N/A: Back [employer] [id number] / / LOAD #4/12; STERILIZED 07/19/2020 Hex Nut Iexp Ti Skilled Nursing 3/8in 1754-30-100 - [id number] Implanted:Qty: 4 on 07/23/2020 by Reece Contreras MD at [facility] Spine N/A: Back J[employer]J- [employer] 1754-30-100 / / LOAD#23; STERILIZED 07/23/2020 J-Hook Iexp 55 Ti Skilled Nursing X25 1754-30-255 - [id number] Implanted:Qty: 4 on 07/23/2020 by Reece Contreras MD at [facility] Spine N/A: Back [employer]J- [employer] 1752-30-255 / / LOAD#23; STERILIZED 07/23/2020 Bone Chips Canc 30ml [id number] - [id number] Implanted:Qty: 1 on 07/23/2020 by Reece Contreras MD at [facility] Tissue N/A: Back [employer]OURCE [id number] 03/12/2025 [id number] / / [id number] Bone Chips Canc 30ml [id number] - [id number] Implanted:Qty: 1 on 07/23/2020 by Reece Contreras MD at [facility] Tissue N/A: Back [employer] [id number] 03/12/2025 [id number] / / [id number] Allograft Vivigen Matrix 10ml Bl-1500-003 - [id number] Implanted:Qty: 1 on 07/23/2020 by Reece Contreras MD at [facility] Tissue LIFENET 07/11/2021 BL-1500-003 / [id number] / Allograft Vivigen Matrix 10ml Bl-1500-003 - [id number] Implanted:Qty: 1 on 07/23/2020 by Reece Contreras MD at [facility] Tissue LIFENET 07/07/2021 BL-1500-003 / [id number] / Allograft Vivigen Matrix 10ml Bl-1500-003 - [id number] Implanted:Qty: 1 on 07/23/2020 by Reece Contreras MD at [facility] Tissue LIFENET 07/11/2021 [facility]1500-003 / [id number] / Allograft Vivigen Matrix 10ml [facility]1500-003 - [id number] Implanted:Qty: 1 on 07/23/2020 by Reece Contreras MD at [facility] Tissue LIFENET 07/11/2021 [facility]1500-003 / [id number] / Insurance [place] Advance Directives For more information, please contact: [phone] * Full Code (Latest Code Status on File) Date Activated Date Inactivated Comments 07/23/2020 11:30 PM 08/23/2020 1:53 PM
--- OUTSIDE RECORDS SUMMARY | 2025-03-10 23:15 | XMS_ITS | Encounter Summary ---
Author Organization [facility] Address [address] [place] [address] Phone Care Team Providers Care Laborer Vegetable Farm Name Role Phone Provider, None Primary Care Provider Unavailabl e Reason for Visit * Reason Onset Date Comments Appointment 06/26/2022 Patient called o n 06/25/22 regarding therapy appointments and doctor putting her on bedrest. Per patient, she has a sore on the left buttocks (ischial tuberosity, per aunt) and they have concern for further break down. Therapist has reached out to [facility] (previous provider) x 2 attempts and an email was sent on 06/26/22. Patient will also attempt to reach [facility] again, which she was unsuccessful prior. Patient does have a wound care f/u on 06/29/22. Patient will be placed on hold at this time. Encounter Details Date Type Department Care Team (Late st Contact Info) Description 06/26/2022 Telephone [facility] at [facility] [address], [address] [place] [id number] Brianna Gutierrez, OT [place] Appointment (Patient called on 06/25/22 regarding therapy appointments and doctor putting her on bedrest. Per patient, she has a sore on the left buttocks (ischial tuberosity, per aunt) and they have concern for further break down. Therapist has reached out to [facility] (previous provider) x 2 attempts and an email was sent on 06/26/22. Patient will also attempt to reach [facility] again, which she was unsuccessful prior. Patient does have a wound care f/u on 06/29/22. Patient will be placed on hold at this time. ) Social History Tobacco Use Types Packs/Day Years Used Date Smoking Tobacco: Never Assessed Comments Unknown Sex and Gender Information Value Date Recorded Sex Assigned at Not on file Legal Sex Female 2:41 PM CDT Gender Identity Not on file Sexual Orientation Not on file COVID-19 Exposure Response Date Recorded In the last 10 days, have yo u been in contact with someone who was confirmed or suspected to have Coronavirus/COVID-19? No / Unsure 06/29/2022 7:58 AM CDT documented as of this encounter Plan of Treatment Upcoming Encounters Date Type Department Care Team (Latest Contact Info) Description 03/29/2025 1:00 PM CDT Outpatient Clinic Visit [facility] [address] [place] [address] Umair Li PSYD [place] Discharge Disposition: Discharged to home or Selfcare 04/28/2025 1:45 PM CDT Outpatient Clinic Visit [facility] [address] [place] [address] Umair Li PSYD [place] Discharge Disposition: Discharged to home or Selfcare documented as of this encounter Visit Diagnoses Not on filedocumented in this encounter Care Teams Laborer Vegetable Farm Relationship Specialty Start Date End Date Provider, None [place] PCP - General 05/02/22 documented as of this encounter
--- OUTSIDE RECORDS SUMMARY | 2025-03-10 23:15 | XMS_ITS | Clinical Summary ---
Author Organization [facility] Address [address] [place] [address] Care Team Providers Care Ruffling Machine Operator Name Role Phone Brit Hong Primary Care Provider + Shaista Mariajulilg DPT Unavail able Allergies Active Allergy Reactions Criticality Noted Date [...] as needed for muscle spasms 180 tablet 11 01/14/20 23 Active Additional Information Patient not taking.Informant: Self, Reported on 10/28/2024 cyclobenzaprine (FLEXERIL) 10 mg tabletIndications: Muscle Spasm Take 1 tablet (10 mg total) by mouth 3 (three) times a day as needed for muscle spasms 90 tablet 11 01/14/20 23 Active Additional Information Patient not [...] 01/31/2024 Assessment & Plan (01/31/2024 9:25 AM OFFICE NURSE): - Last Pap NILM, HPV pos 12/2023 [...] 11/28/2023 Assessment & Plan (01/31/2024 9:29 AM OFFICE NURSE): Concern for postmenopausal bleeding Spotting episodes that patient and partner believe are due to self- catheterization Pelvic US performed, reviewed findings with patient, EMS 5.9 mm, counseling provided thickened in postmenopausal patient Offered EMB Patient defers for now and prefers to monitor her symptoms with consideration for EMB with additional episodes Assessment & Plan (11/30/2023 10:27 AM OFFICE NURSE): -pt reports last menstrual period was 11/2022, spouse reports she has had a couple episodes of light bleeding since. Will obtain pelvic US. Fracture of tibial plateau 07/16/2023 Paralysis 03/14/2023 03/14/2023 E. coli UTI 03/09/2023 03/14/2023 Recurrent UTI 03/08/2023 03/14/2023 Assessment & Plan (11/30/2023 10:32 AM OFFICE NURSE): She was instructed to call our office [...] 08/28/2021 Assessment & Plan (11/30/2023 10:30 AM OFFICE NURSE): -currently on Myrbetriq and performs intermittent CISC, [...] Date Paraplegia 07/21/2021 01/18/2023 Spasticity 07/21/2021 01/18/2023 Encounters Date Type Department Care Team Description 03/04/2025 8:22 PM CDT - 03/04/2025 10:24 PM CDT Emergency [facility] Emergency Department [address] [place] [address] Suprapubic catheter dysfunction, initial encounter (Primary Dx); Abnormal urinalysis Discharge Disposition: Discharge to home or self care 02/18/2025 Telephone [facility] Urology [address] [place] [address] Advanced Medicine 11th [place] [address] [place] [address] Federico Mark 02/17/2025 10:20 AM CDT Telemedicine [facility] Urology [address] [place] [address] Aftab Suazo MD Neurogenic bladder (Primary Dx); Obstruction of [place] catheter, subsequent encounter 02/09/2025 Telephone [facility] Urology [address] [place] [phone] Mckenzie Campos MD 02/09/2025 Telephone [facility] [address] [place] [address] Miesha Modi, [facility] 02/01/2025 2:11 PM CDT - 02/01/2025 11:59 PM CDT Hospital Encounter [facility] [address] [place] [address] Krysta Chung MD Encounter for well woman exam; Encounter for screening mammogram for malignant neoplasm of breast Discharge Disposition: Discharge to home or self care from Last 3 Months Immunizations Immunization Administration Dates Next Due Tdap 02/07/2020 Surgical History Surgery Date Site/Laterality Comments TUBAL LIGATION 11/25/2000 - 11/24/2001 FRACTURE SURGERY 07/23/2020 shoulder PRESSURE ULCER DEBRIDEMENT 09/22/2020 Left POSTERIOR SPINAL FUSION 07/23/2020 N/A ORIF T5-T6 fracture dislocation, posterior spinal fusion T3 - T8. DILATION AND CURETTAGE OF UTERUS late Medical History Medical History Date Comments Anemia Anxiety GERD (gastroesophageal reflu x disease) Stroke (HCC) Contusion of lung, closed, subsequent encounter 06/2020 Resolved Neurogenic bowel 06/2020 Neurogenic bladder 06/2020 Intermittent catheterization Closed right scapular fracture 06/2020 Sleep disorder 06/2020 insomnia. result ed following accident. Asthma 09/07/2022 Urinary incontinence Urinary tract infection Family History Medical History Relation Name Comments Hypertension Father King mcgraw Arthritis Mother Ursula mcgraw Hypertension Mother Ursula mcgraw Kidney disease Mother Ursula mcgraw Relation Name Status Comments Father King mcgraw Mother Ursula mcgraw Social History Tobacco Use Types Packs/Day Years Used Date Smoking Tobacco: Former Cigarettes 0.5 10 2 010 - 2019 Smokeless Tobacco: Never Tobacco Cessation:Counseling Given: [...] on file Legal Sex Female 6:23 PM OFFICE NURSE Gender Identity Not on file Sexual Orientation Not on file Obstetrics History Para Term AB IAB SAB Ectopic Multiple Livin g Live Births 5 4 4 1 1 4 4 Date Outcome GA Total Labor Labor/2nd/3rd Weight Sex Type Anes PTL Kalani A1 A5 Name Clin 1992 Term M Vag-S pont Living 1995 Term F Vag-S pont Living 1997 SAB 1997 Term M Vag-S pont Living 2000 Term F Vag-S pont Living Last Filed Vital Signs Vital Sign Reading [...] cm (5' 9 ) 10/28/2024 1:41 PM OFFICE NURSE Body Mass Index 22.14 10/28/2024 1:41 PM OFFICE NURSE Plan of Treatment Health Maintenance Due Date Last Done Comments Colon Cancer Screening-Colonoscopy 1973 Depression Screening 1973 Hepatitis C Screening 1973 Hepatitis B Screening 1991 Pneumococcal vaccine <65 (1 of 2 - PCV) 1992 Zoster Vaccine (1 of 2) 2023 Covid-19 Vaccine (3 - 2023- season) 2024, 03/02/2021 Cervical Cancer Screening 01/02/20252023, 11/28/2023, 11/28/2023 Regular Well Visit/Exam 18-64 01/27/2025 01/28/2024 Influenza Vaccine (Season Ended) 2025 Breast Cancer Screening-Mammogram 02/01/2026 025 DTaP/Tdap/Td Vaccine (2 - Td or Tdap) 02/06/2030 Procedures Procedure Name Priority Date/Time Associated Diagnosis [...] DETECTION WITH GENOTYPING Routine 01/02/2024 11:03 AM OFFICE NURSE Screening for cervical cancer from Last 3 Months or Most Recently Relevant to Health Maintenance Results * (ABNORMAL) Urinalysis reflex to microscopic and culture Urine (03/04/2025 9:43 PM CDT) Color, ur Straw Yellow Clarity, ur Clear Clear [facility] ([place]) Specific gravity, ur 1.003 1.003 - 1.030 [facility] ([place]) pH, urine 7.5 [facility] Comment: Interpretive Data U rine pH is affected by diet, medications, systemic acid-base disturbances, and renal tubular function. pH may affect urinary stone formation. For example, urine pH below 6.0 may help reduce the tendency for calcium phosphate stones and pH greater than 6.0 may reduce the tendency for uric acid stone formation. Source: [employer] Current Interpretive Data was last revised on 2017 Protein, ur ql Negative Negative [facility] ([place]) Glucose, ur ql Negative Negative [facility] ([place]) Ketones, ur Negative Negative [facility] M [facility] ([place]) Bilirubin, ur Negative Negative [facility] ([place]) Blood, ur 2+(A) Negative [facility] ([place]) Urobilinogen, ur <2.0 <2.0 mg/dL [facility] ([place]) Nitrite, ur Positive(A) Negative [facility] ([place]) Leukocyte esterase, ur 3+(A) Negative [facility] ([place]) UA reflex comment Reflex to microscopic UA will be performed. [facility] ([place]) Urine 03/04/2025 9:43 PM CDT 03/04/2025 9:47 PM CDT [facility] MICROBIOLOGY - GENERAL ORDERABLES Final Result Performing Organization Address [facility] Co de Phone Number [facility] ([place]) [address] [facility] Department [place] [address] * (ABNORMAL) Urinalysis, microscopic only (03/04/2025 9:43 PM CDT) WBC, ur 0-5 0 - 5 /HPF RBC, ur 0-2 0 - 2 /HPF [facility] ([place]) Amorphous crystals, ur Trace(A) [facility] ([place]) Culture Reflex Comment Reflex conditions for urine culture (WBC >10) not met. [facility] ([place]) Urine 03/04/2025 9:43 PM CDT 03/04/2025 9:47 PM CDT [facility] URINE ORDERABLES Final Result Performing Organization Address [facility] Co de Phone Number [facility] ([place]) [address] [place] [address] Department [place] [address] * Screening Mammogram Bilateral W Pavan (02/01/2025 [...] BI-RADS CATEGORY 1: Negative. Krysta Chung MD IM MAMMO PROCEDURES F inal Result * (ABNORMAL) High Risk HPV DNA Detection with Genotyping (Molecular component) (01/02/2024 11:03 AM OFFICE NURSE) HPV HR 16 Not Detected Not Detected [facility] HPV HR 18 Not Detected Not Detected [facility] HPV HR Non 16/18 Detected(A) Not Detected [facility] Comment: Interpretive Data Nucleic acid amplification [...] this test have been verified by the [facility] Molecular Infectious Disease laboratory. Correlate with separately reported cytology results, as applicable. Interpretive data last revised 23 Endocervical 01/02/2024 11:0 3 AM OFFICE NURSE 01/08/2024 3:52 PM OFFICE NURSE Narrative [facility] - 01/09/2024 4:24 AM OFFICE NURSE Clinical history and diagnosis->last pap sparsely cellular sample with positive HPV Testing type->Screening Last menstrual period (date if known)->Unknown Menstrual status->Irregular Marce Carpenter NP LAB BODY FLUIDS AND STOOLS ORD ERABLES Final Result [facility] [address] [facility] [place] [address] from Last 3 Months or Most Recently Relevant to Health Maintenance Insurance [facility] MEDICARE MEDICARE [facility] Address: [address] [address] [place] [address] IDPA Care Teams Ruffling Machine Operator Relationship Specialty Start Date End Date Brit Hong PA PCP - General Physician Group Director Experience 04/28/21 Shaista Maria DPT [address] [facility], [address] [address] Physical Therapist Physical Therapy 01/29/24
--- OUTSIDE RECORDS SUMMARY | 2025-03-10 23:15 | XMS_ITS | Encounter Summary ---
Author Organization [facility] Address [address] [facility] [address] Phone Care Team Providers Care Forestry Support Specialist Name Role Phone Provider, None Primary Care Provider Unavailabl e Encounter Details Date Type Department Care Team (Late st Contact Info) Description 11/08/2023 Behavioral Health Patient Survey [facility] [address] [place] [phone] Umair Li PSYD [place] Social History Tobacco [...] 03/29/2025 1:00 PM CDT Outpatient Clinic Visit [facility] [address] [place] [address] Umair Li PSYD [place] Discharge Disposition: Discharged to home or Selfcare 04/28/2025 1:45 PM CDT Outpatient Clinic Visit [facility] [address] [place] [address] Umair Li PSYD [place] Discharge Disposition: Discharged to home or Selfcare [...] on filedocumented in this encounter Care Teams Forestry Support Specialist Relationship Specialty Start Date End Date Provider, None [place] PCP - General 05/02/22 documented as of this encounter
--- OUTSIDE RECORDS SUMMARY | 2025-03-10 23:15 | XMS_ITS | Clinical Summary ---
Author Organization [facility] Address [address] [place] [address] Care Team Providers Care Experimental Flight Test Mechanic Name Role Phone Brit Hong PA-C Primary Care Provider Jeny Zhao MD Unavailable [phone] Jeny Zhao MD Unavailable [phone] Source Comments [facility],non-owned Affiliates and Associated Physician Practices is amultiple site organization consisting of ambulatory clinics and hospital sitesin [place], [place], [place] and [place]. This disclosure is being madepursuant to the Care Everywhere program and may not contain all information available regarding this patient. Last updated 18.[facility] Allergies No known active allergies Medications * Be aware that medications may not be up to date on this document. Alwaysverify current medications with the patient. oxybutynin (DITROPAN) 5 MG tablet TAKE 1 TABLET BY MOUTH TWICE DAILY DIRECTED 03/29/2021 Active Probiotic Product (PROBIOTIC PO) Take 1 tablet by mouth once daily Active dantrolene (DANTRIUM) 25 MG capsuleIndicati ons:Paraplegia at T4 level (HCC) Take 1 (one) capsule by mouth once daily 30 capsule 5 04/07/2021 Active fluticasone-gio anterol (BREO ELLIPTA) 100-25 MCG/INH inhaler Inhale 1 puff by mouth once daily 04/18/2021 Active SSD 1 % cream PLACE ON WOUND WITH EACH DRESSING CHANGE 05/03/2021 Active Active Problems Problem Noted Date Diagnosed Date SIERRA (dyspnea on exertion) 02/01/2021 Respiratory failure 02/01/2021 PICC (peripherally inserted central catheter) in place 01/20/2021 Osteomyelitis of vertebra, sacral and sacrococcy geal region 01/16/2021 Acute osteomyelitis of sacrum 01/10/2021 Pressure injury of sacral region, stage 4 2019 Cerebrovascular accident (CV A) due to embolism of left middle cerebral artery 07/28/2020 Acute respiratory failure with hypoxia and hyper capnia 07/23/2020 Adrenal hemorrhage 07/23/2020 Closed fracture of seventh c ervical vertebra with routine healing 07/23/2020 Closed fracture of transvers e process of thoracic vertebra with routine healing 07/23/2020 Closed nondisplaced fracture of body of right sc apula 07/23/2020 Closed traumatic compression fracture of thoraci c vertebra 07/23/2020 Contusion of both lungs 07/23/2020 Crush injury 07/23/2020 Lung laceration 07/23/2020 Multiple fractures of ribs, bilateral, initial encounter for closed fracture 07/23/2020 Paraplegia, complete 07/23/2020 Traumatic injury of spinal cord at T1-T6 level 0 07/23/2020 Social History Tobacco Use Types Packs/Day Years Used Date Smoking Tobacco: Former Smokeless Tobacco: Never Alcohol Use Standard Drinks/Week Comments Never 0 (1 standard drink = 0.6 oz pur e alcohol) Comments Unknown Sex and Gender Information Value Date Recorded Sex Assigned at Not on file Legal Sex Female 12:34 PM CDT Gender Identity Not on file Sexual Orientation Not on file Last Filed Vital Signs Vital Sign Reading Time Taken Comments Blood Pressure 109/67 05/25/2021 10:41 AM CDT Pulse 84 05/25/2021 10:41 AM CDT Temperature 36.5 C (97.7 F) 05/25/2021 10:41 AM CDT Respiratory Rate 20 05/25/2021 10:41 AM CDT Oxygen Saturation 100% 05/25/2021 10:41 AM CDT Inhaled Oxygen Concentration - - Weight 62.1 kg (137 lb) 05/25/2021 10:41 AM CDT Height 177.8 cm (5' 10 ) 05/25/2021 10:41 AM CDT Body Mass Index 19.66 05/25/2021 10:41 AM CDT Plan of Treatment Health Maintenance Due Date Last Done Comments ANDRES (AGES 45-75) - COL ON CA SCREENING 1973 COLON MONITORING 1973 COLONOSCOPY - COLON CA SCREENING 1973 CT COLONOGRAPHY - COLON CA SCREENING 1973 Colorectal Cancer Screening 1973 FIT - COLON CA SCREENING 1973 FLEX SIG - COLON CA SCREENING 1973 MAMMOGRAM 1973 HIV SCREENING 1988 HEPATITIS C SCREENING 03/21/1991 DTAP/TDAP/TD VACCINES (1 - Tdap) 1992 HEPATITIS B VACCINE (1 of 3 - 19+ 3-dose series) 1992 PNEUMOCOCCAL VACCINE 50+ (1 of 1 - PCV) 2023 ZOSTER VACCINE (1 of 2) 2023 COVID-19 VACCINE (3 - 2023-2 5 season) 2024 03/22/2021, 03/02/2021 DEPRESSION SCREENING 11/25/2024 INFLUENZA VACCINE (Season Ended) 2025 LIPID TESTING 07/28/2025 07/28/2020 HIB VACCINE Aged Out No longer eligi ble based on patient's age to complete this topic HPV VACCINE Aged Out No longer eligi ble based on patient's age to complete this topic MENINGOCOCCAL (Group B) VACCINE SHARED DECISION-MAKING Aged Out No longer eligible based on patient's age to complete this topic MENINGOCOCCAL GROUPS A/C/Y/W VACCINE Aged Out No longer eligible b ased on patient's age to complete this topic Insurance [facility] Care Teams Experimental Flight Test Mechanic Relationship Specialty Start Date End Date Brit Hong PA-C [address] [place] [phone] PCP - General 02/15/21 Jeny Zhao MD [address] [place] [phone] Resident Student Resident 03/30/21 Jeny Zhao MD [address] [place] [phone] Resident Student Resident 04/03/21
--- OUTSIDE RECORDS SUMMARY | 2025-03-10 23:15 | XMS_ITS | Encounter Summary ---
Author Organization [facility] Address formerly [facility] [place] [address] Care Team Providers Care Business System Manager Name Role Phone Brit Hong PA-C Primary Care Provider [phone] James Peñaloza MD Unavailable Unavailable Encounter Details Date Type Department Care Team (Late st Contact Info) Description 08/14/2024 MyChart Message Enc [facility] [place], [place] [id number] Maryan Jeffries NP [address] [place], [place] [id number] Antibiotic Social History Tobacco Use Types Packs/Day Years Used Date Smoking Tobacco: Former Cigarettes 0.5 10 0 07/23/2010 - 07/23/2020 Smokeless Tobacco: Never Alcohol Use Standard Drinks/Week [...] file Not on file Not on file documented as of this encounter Functional Status * Are you deaf or do you have serious difficulty hearing Answer Date of Assessment Author Status No 03/08/2023 11:56 PM CDT Michaelle Bales RN Active * Are you blind or do you have serious difficulty seeing, even when wearing glasses? Answer Date of Assessment Author Status No 03/08/2023 11:56 PM CDT Michaelle Bales RN Active * Do you have serious difficulty walking or climbing stairs? Answer Date of Assessment Author Status Yes 03/08/2023 11:56 PM CDT Michaelle Bales RN Active * Do you have difficulty dressing or bathing? Answer Date of Assessment Author Status Yes 03/08/2023 11:56 PM CDT Michaelle Bales RN Active * Because of a physical, mental, or emotional condition, do you have difficulty doing errands alone such as visiting a doctor's office or shopping? Answer Date of Assessment Author Status Yes 03/08/2023 11:56 PM CDT Michaelle Bales RN Active documented as of this encounter Mental Status * Because of a physical, mental, or emotional condition, do you have serious difficulty concentrating, remembering, or making decisions? Answer Entry Date Author Status No 03/08/2023 11:56 PM CDT Michaelle Bales RN Active documented in this encounter Plan of Treatment Not on file documented as of this encounter Goals Goal Patient Goal Type Associated Problems Recent Progress Patient-Stated? Author Family - family caregiver with be involved in care transitions and discharge planning Lifestyle No Nataliia Durbin, [employer] documented as of this encounter Visit Diagnoses Not on filedocumented in this encounter Additional Health Concerns Infection Onset Date Last Indicated Resolved Time ESBL - Extended Spectrum Bet a-lactamase Comment:05/22/21 +ESBL Coccyx 05/25/2021 05/25/2021 Assessment Noted Time PHQ-9 Depression Total Score: 1 08/01/20 21 11:44 AM CDT documented as of this encounter Care Teams Business System Manager Relationship Specialty Start Date End Date Brit Hong PA-C [address] [place] [id number] PCP - General NURSE PRACTITIONER 09/21/20 James Peñaloza MD [address] [place] [id number] Referring Physician Specialist 01/18/21 documented as of this encounter
--- OUTSIDE RECORDS SUMMARY | 2025-03-10 23:15 | XMS_ITS | Data Portability ---
Author Organization [facility] AUNDREANita Address [address] [place] [address] Care Team Providers Care Hand Stitcher Name Role Phone MAREKDOMINGO TAYLOR Primary Care Provider Assessment Encounter Date Assessment Date Assessment LastModified by Organization Details LastModified Time 09/18/2023 09/18/2023 she is remindd to schedule mammogram Not available 09/22/2023 12:54:43 09/21/2024 09/21/2024 has f/u neuro november Not available 09/21/2024 14:23:06 Plan of Treatment Reminders Order Date Submit Date Provider Last Modified By Organization Details Last Modified Time Details Appointments None recorded. Lab urinalysis , dipstick 2024 025 [email or web address] In-Office Order, Internal Use Only DO Not Attach Compendium DO Not Attach Compendium, Do Not Delete/merge, [id number] 15:51:48 culture, urine 2024 025 HENRIETTA LABBARRY, Michel [facility] [address], [address], [place], [address], 5 00:08:36 vitamin D, 25-hydroxy , total, serum 2023 024 HENRIETTA CURRY, [facility] [address], [address], [place], [address], 4 08:25:52 CMP, serum or plasma 2023 024 HENRIETTA CURRY, Michel [address], [address], [place], [address], 4 08:25:47 iron + total iron-gerhard ng capacity (TIBC), serum 2023 024 HENRIETTA CURRY, Michel [address], [address], [place], [address], 4 08:25:48 ferritin, serum or plasma 2023 024 HENRIETTA CURRY, Michel [address], [address], [place], [address], 4 08:25:49 CBC w/ auto diff 2023 024 HENRIETTA CURRY, Michel [address], [address], [place], [address], 4 08:25:50 CBC w/ auto diff 2023 024 HENRIETTA CURRY, Michel [address], [address], [place], [address], 4 21:07:57 CMP, serum or plasma 2023 024 Michel [address], [address], [place], [address], 4 21:07:56 lipid panel, serum 2023 024 Michel [address], [address], [place], [address], 4 21:07:56 vaginal pathogens panel, MICHELLE+probe, vaginal fluid 2023 024 Michel [address], [address], [place], [address], 4 21:07:55 culture, urine 2022 023 HENRIETTA [facility], [address], [address], [place], [address], 3 00:07:05 Referral neurologic al surgeon referral - paraplegic patient with severe muscle spasms not improved by medical management (including botox and muscle relaxers). Would like to discuss surgical options. 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 Surgeries None recorded. Imaging DEXA, axial skeleton + vertebral fracture assessment [address] [facility], [address] [facility], [place], [address], 4 16:35:53 MAMMO, screening, bilateral 2023 024 [email or web address] [facility]-Natalie nancy, [address] [place], [address], 4 07:54:55 Medication Orders EpiPen 2-Reddy 0.3 mg/0.3 mL injection, auto-injec tor 2023 [id number], [address], [place], [id number], 4 14:33:14 clotrimazo le 1 % topical cream 2023 024 [id number], [address], [place], [id number], 4 16:07:00 Patient TargetsNo targets recorded. 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 Would like to discuss surgical options. Referring Physician: General Fortino Connor, Encounter Date: 09/21/2024 Results Created Date Observation Date Name Description Value Unit Range Abnormal Flag Note LastModifiedBy Organization Detail LastModifiedTime 04/09/2004/10/2023 LIPID PANEL cholesterol, total 109 mg/dL 100-19 9 Not Available [facility] ([facility]) [address] [place], [address], 04/10/2023 10:13:47 04/09/20 23 04/10/2023 LIPID PANEL triglyceride s 58 mg/dL 0-149 Not Available [facility] ([facility]) [address] [place], [address], 04/10/2023 10:13:47 04/09/20 23 04/10/2023 LIPID PANEL HDL cholesterol 28 mg/dL >39 below low normal Not Available [facility] ([facility]) [address] [place], [address], 04/10/2023 10:13:47 04/09/20 23 04/10/2023 LIPID PANEL VLDL cholesterol patrice 13 mg/dL 5-40 Not Available [facility] ([facility]) [address] [place], [address], 04/10/2023 10:13:47 04/09/20 23 04/10/2023 LIPID PANEL LDL chol calc ([facility]) 68 mg/dL 0-99 Not Available [facility] ([facility]) [address] [place], [address], 04/10/2023 10:13:47 04/09/20 23 04/10/2023 COMP. METAB OLIC PANEL (14) glucose 107 mg/dL 70-99 above high normal Not Available [facility] ([facility]) [address] [place], [address], 04/10/2023 10:13:48 04/09/20 23 04/10/2023 COMP. METAB OLIC PANEL (14) BUN 10 mg/dL 6-24 Not Available [facility] ([facility]) [address] [place], [address], 04/10/2023 10:13:48 04/09/20 23 04/10/2023 COMP. METAB OLIC PANEL (14) creatinine 0.32 mg/dL 0.57-1 .00 below low normal Not Available [facility] ([facility]) [address] [place], [address], 04/10/2023 10:13:48 04/09/20 23 04/10/2023 COMP. METAB OLIC PANEL (14) eGFR 127 mL/mi n/1.7 3 >59 Not Available [facility] ([facility]) [address] [place], [address], 04/10/2023 10:13:48 04/09/20 23 04/10/2023 COMP. METAB OLIC PANEL (14) BUN/creatini ne ratio 31 9-23 above high normal Not Available [facility] ([facility]) [address] [place], [address], 04/10/2023 10:13:48 04/09/20 23 04/10/2023 COMP. METAB OLIC PANEL (14) sodium 139 mmol/ L 134-14 4 Not Available [facility] ([facility]) [address] [place], [address], 04/10/2023 10:13:48 04/09/20 23 04/10/2023 COMP. METAB OLIC PANEL (14) potassium 4.3 mmol/ L 3.5-5. 2 Not Available [facility] ([facility]) [address] [place], [address], 04/10/2023 10:13:48 04/09/20 23 04/10/2023 COMP. METAB OLIC PANEL (14) chloride 99 mmol/ L 96-106 Not Available [facility] ([facility]) [address] [place], [address], 04/10/2023 10:13:48 04/09/20 23 04/10/2023 COMP. METAB OLIC PANEL (14) carbon dioxide, total 27 mmol/ L 20-29 Not Available [facility] ([facility]) [address] [facility] [place], [address], 04/10/2023 10:13:48 04/09/20 23 04/10/2023 COMP. METAB OLIC PANEL (14) calcium 9.0 mg/dL 8.7-10 .2 Not Available [facility] ([facility]) [address] [facility], [place], [address], 04/10/2023 10:13:48 04/09/20 23 04/10/2023 COMP. METAB OLIC PANEL (14) protein, total 6.4 g/dL 6.0-8. 5 Not Available [facility] ([facility]) [address] [facility] [place], [address], 04/10/2023 10:13:48 04/09/20 23 04/10/2023 COMP. METAB OLIC PANEL (14) albumin 3.4 g/dL 3.8-4. 8 below low normal Not Available [facility] ([facility]) [address] [facility] [place], [address], 04/10/2023 10:13:48 04/09/20 23 04/10/2023 COMP. METAB OLIC PANEL (14) globulin, total 3.0 g/dL 1.5-4. 5 Not Available [facility] ([facility]) [address] [place], [address], 04/10/2023 10:13:48 04/09/20 23 04/10/2023 COMP. METAB OLIC PANEL (14) A/G ratio 1.1 1.2-2. 2 below low normal Not Available [facility] ([facility]) [address] [facility] [place], [address], 04/10/2023 10:13:48 04/09/20 23 04/10/2023 COMP. METAB OLIC PANEL (14) bilirubin, total 0.3 mg/dL 0.0-1. 2 Not Available [facility] ([facility]) [address] [facility], [place], [address], 04/10/2023 10:13:48 04/09/20 23 04/10/2023 COMP. METAB OLIC PANEL (14) alkaline phosphatase 59 IU/L 44-121 Not Available [facility] ([facility]) [address] [facility], [place], [address], 04/10/2023 10:13:48 04/09/20 23 04/10/2023 COMP. METAB OLIC PANEL (14) AST (SGOT) 13 IU/L 0-40 Not Available [facility] ([facility]) [address] [facility], [place], [address], 04/10/2023 10:13:48 04/09/20 23 04/10/2023 COMP. METAB OLIC PANEL (14) ALT (SGPT) 10 IU/L 0-32 Not Available [facility] ([facility]) [address] [facility], [place], [address], 04/10/2023 10:13:48 04/09/20 23 04/10/2023 HEMOG LOBIN A1C hemoglobin A1C 5.2 % 4.8-5. 6 Predi abete s: 5.7 - 6.4 Diabe tamar: >6.4 Glyce chetna contr ol for adult s with diabe tamar: <7.0 Not Available [facility] ([facility]) [address] [facility], [place], [address], 04/10/2023 10:13:49 04/09/20 23 04/10/2023 CBC WITH DIFFE RENTI AL/PL ATELE T WBC 5.9 x10e3 /uL 3.4-10 .8 Not Available [facility] ([facility]) [address] [facility], [place], [address], 04/10/2023 10:13:50 04/09/20 23 04/10/2023 CBC WITH DIFFE RENTI AL/PL ATELE T RBC 4.59 x10e6 /uL 3.77-5 .28 Not Available [facility] ([facility]) [address] [facility], [place], [address], 04/10/2023 10:13:50 04/09/20 23 04/10/2023 CBC WITH DIFFE RENTI AL/PL ATELE T hemoglobin 11.9 g/dL 11.1-1 5.9 Not Available [facility] ([facility]) [address] [place], [address], 04/10/2023 10:13:50 04/09/2004/10/2023 CBC WITH DIFFE RENTI AL/PL ATELE T hematocrit 37.0 % 34.0-4 6.6 Not Available [facility] ([facility]) [address] [place], [address], 04/10/2023 10:13:50 04/09/20 23 04/10/2023 CBC WITH DIFFE RENTI AL/PL ATELE T MCV 81 fL 79-97 Not Available [facility] ([facility]) [address] [place], [address], 04/10/2023 10:13:50 04/09/2004/10/2023 CBC WITH DIFFE RENTI AL/PL ATELE T MCH 25.9 pg 26.6-3 3.0 below low normal Not Available [facility] ([facility]) [address] [place], [address], 04/10/2023 10:13:50 04/09/20 23 04/10/2023 CBC WITH DIFFE RENTI AL/PL ATELE T MCHC 32.2 g/dL 31.5-3 5.7 Not Available [facility] ([facility]) [address] [place], [address], 04/10/2023 10:13:50 04/09/20 23 04/10/2023 CBC WITH DIFFE RENTI AL/PL ATELE T RDW 12.6 % 11.7-1 5.4 Not Available [facility] ([facility]) [address] [facility], [place], [address], 04/10/2023 10:13:50 04/09/20 23 04/10/2023 CBC WITH DIFFE RENTI AL/PL ATELE T platelets 519 x10e3 /uL 150-45 0 above high normal Not Available [facility] ([facility]) [address] [facility], [place], [address], 04/10/2023 10:13:50 04/09/20 23 04/10/2023 CBC WITH DIFFE RENTI AL/PL ATELE T neutrophils 62 % notest ab. Not Available [facility] ([facility]) [address] [facility], [place], [address], 04/10/2023 10:13:50 04/09/20 23 04/10/2023 CBC WITH DIFFE RENTI AL/PL ATELE T lymphs 22 % notest ab. Not Available [facility] ([facility]) [address] [facility], [place], [address], 04/10/2023 10:13:50 04/09/20 23 04/10/2023 CBC WITH DIFFE RENTI AL/PL ATELE T monocytes 12 % notest ab. Not Available [facility] ([facility]) [address] [facility], [place], [address], 04/10/2023 10:13:50 04/09/20 23 04/10/2023 CBC WITH DIFFE RENTI AL/PL ATELE T eos 2 % notest ab. Not Available [facility] ([facility]) [address] [facility], [place], [address], 04/10/2023 10:13:50 04/09/20 23 04/10/2023 CBC WITH DIFFE RENTI AL/PL ATELE T basos 1 % notest ab. Not Available [facility] ([facility]) [address] [facility], [place], [address], 04/10/2023 10:13:50 04/09/20 23 04/10/2023 CBC WITH DIFFE RENTI AL/PL ATELE T neutrophils (absolute) 3.7 x10e3 /uL 1.4-7. 0 Not Available [facility] ([facility]) [address] [facility], [place], [address], 04/10/2023 10:13:50 04/09/20 23 04/10/2023 CBC WITH DIFFE RENTI AL/PL ATELE T lymphs (absolute) 1.3 x10e3 /uL 0.7-3. 1 Not Available [facility] ([facility]) [address] [facility], [place], [address], 04/10/2023 10:13:50 04/09/20 23 04/10/2023 CBC WITH DIFFE RENTI AL/PL ATELE T monocytes(ab solute) 0.7 x10e3 /uL 0.1-0. 9 Not Available [facility] ([facility]) [address] [place], [address], 04/10/2023 10:13:50 04/09/20 23 04/10/2023 CBC WITH DIFFE RENTI AL/PL ATELE T eos (absolute) 0.1 x10e3 /uL 0.0-0. 4 Not Available [facility] ([facility]) [address] [place], [address], 04/10/2023 10:13:50 04/09/20 23 04/10/2023 CBC WITH DIFFE RENTI AL/PL ATELE T baso (absolute) 0.1 x10e3 /uL 0.0-0. 2 Not Available [facility] ([facility]) [address] [place], [address], 04/10/2023 10:13:50 04/09/20 04/10/2023 CBC WITH DIFFE RENTI AL/PL ATELE T immature granulocytes 1 % notest ab. Not Available [facility] ([facility]) [address] [facility], [place], [address], 04/10/2023 10:13:50 04/09/20 23 04/10/2023 CBC WITH DIFFE RENTI AL/PL ATELE T immature grans (abs) 0.0 x10e3 /uL 0.0-0. 1 Not Available [facility] ([facility]) [address] [facility], [place], [address], 04/10/2023 10:13:50 04/09/2004/10/2023 HIV AB/P2 4 AG WITH REFLE X HIV Ab/P24 Ag screen Non Reacti ve nonrea ctive HIV Negat yasmine HIV-1 /HIV- 2 antib odies and HIV-1 p24 antig en were NOT detec gayathri. There is no labor atory evide nce of HIV infec tion. Not Available [facility] ([facility]) [address] [facility], [place], [address], 04/10/2023 10:13:52 04/09/2004/10/2023 VITAM IN D, 25-HY DROXY vitamin D, 25-hydroxy 75.2 NG/mL 30.0-1 00.0 Vitam in D defic iency has been defin ed by the Insti tute of Medic ine and an Endoc rine Socie ty pract ice guide line as a level of serum 25-OH vitam in D less than 20 ng/mL (1,2) . The Endoc rine Socie ty went on to furth er defin e vitam in D insuf ficie ncy as a level betwe en 21 and 29 ng/mL (2). 1. IOM (Inst itute of Medic ine). 2010. Dieta ry refer ence intak es for calci um and D. Ruma meyer [place]: The [facility] Press . 2. Kelly guillaume MF, Marine arzola [place], Benjamín off-F errar i MOMIN, et al. Evalu ation , treat ment, and preve ntion of vitam in D defic iency : an Endoc rine Socie ty clini patrice pract ice guide line. JCEM. 2010; 96(7) :1911 -30. Not Available [facility] ([facility]) [address] [facility], [place], [address], 04/10/2023 10:13:51 04/10/20 23 04/10/2023 urina lysis , dipst ick Leukocytes Negati ve Not Available In-Office Order Internal Use Only DO Not Attach Compendium DO Not Attach Compendium, Do Not Delete/merge, [id number] 04/09/2023 17:26:41 04/10/20 23 04/10/2023 urina lysis , dipst ick Nitrite negati ve Not Available In-Office Order Internal Use Only DO Not Attach Compendium DO Not Attach Compendium, Do Not Delete/merge, 04/09/2023 17:26:41 04/10/20 23 04/10/2023 urina lysis , dipst ick Urobilinogen .2 Not Available In-Of fice Order Internal Use Only DO Not Attach Compendium DO Not Attach Compendium, Do Not Delete/merge, [id number] 04/09/2023 17:26:41 04/10/20 23 04/10/2023 urina lysis , dipst ick Protein Negati ve Not Available In-Office Order Internal Use Only DO Not Attach Compendium DO Not Attach Compendium, Do Not Delete/merge, [id number] 04/09/2023 17:26:41 04/10/20 23 04/10/2023 urina lysis , dipst ick pH 6.5 Not Available In-Office Order Internal Use Only DO Not Attach Compendium DO Not Attach Compendium, Do Not Delete/merge, [id number] 04/09/2023 17:26:41 04/10/20 23 04/10/2023 urina lysis , dipst ick Blood Negati ve Not Available In-Office Order Internal Use Only DO Not Attach Compendium DO Not Attach Compendium, Do Not Delete/merge, [id number] 04/09/2023 17:26:41 04/10/20 23 04/10/2023 urina lysis , dipst ick Specific [place] 1.015 Not Available In-Off ice Order Internal Use Only DO Not Attach Compendium DO Not Attach Compendium, Do Not Delete/merge, [id number] 04/09/2023 17:26:41 04/10/20 23 04/10/2023 urina lysis , dipst ick Ketone Negati ve Not Available In-Office Order Internal Use Only DO Not Attach Compendium DO Not Attach Compendium, Do Not Delete/merge, [id number] 04/09/2023 17:26:41 04/10/20 23 04/10/2023 urina lysis , dipst ick Bilirubin Negati ve Not Available In-Office Order Internal Use Only DO Not Attach Compendium DO Not Attach Compendium, Do Not Delete/merge, [id number] 04/09/2023 17:26:41 04/10/20 23 04/10/2023 urina lysis , dipst ick Glucose Negati ve Not Available In-Office Order Internal Use Only DO Not Attach Compendium DO Not Attach Compendium, Do Not Delete/merge, [id number] 04/09/2023 17:26:41 04/10/20 23 04/10/2023 urina lysis , dipst ick Appearance Cloudy Not Available In-Offi ce Order Internal Use Only DO Not Attach Compendium DO Not Attach Compendium, Do Not Delete/merge, [id number] 04/09/2023 17:26:41 04/10/20 23 04/10/2023 urina lysis , dipst ick Color Yellow Not Available In-Office Order Internal Use Only DO Not Attach Compendium DO Not Attach Compendium, Do Not Delete/merge, [id number] 04/09/2023 17:26:41 04/17/20 23 04/17/2023 COLOG UARD cologuard result reportable Negati ve negati ve NEGAT YASMINE TEST RESUL T. A negat yasmine Colog uard resul t indic ates a low likel ihood that a color ectal cance r (CRC) or advan leti adeno ma (siddhartha omato us polyp s with more advan leti pre-m align ant featu res) is prese nt. The chan e that a perso n with a negat yasmine Colog uard test has a color ectal cance r is less than 1 in 1500 (nega tive predi ctive value >99.9 %) or has an advan leti adeno ma is less than 5.3% (nega tive predi ctive value 94.7% ). These data are based on a prosp ectiv e cross -sect ional study of 10,00 0 indiv idual s at [place] risk for color ectal cance r who were scree ludmila with both Colog uard and colon oscop y. (Kimie aleksandra T. et al, N Engl J Med 2014; 370(1 4):12 86-12 97) The lazara l value (refe rence range ) for this assay is negat yasmine. COLOG UARD RE-SC REECOOPER MENDES RECOM MENDA TION: Perio dic color ectal cance r scree russell is an impor tant part of preve ntive healt hcare for asymp tomat ic indiv idual s at [place] ge risk for color ectal cance r. Follo wing a negat yasmine Colog uard resul t, the Ameri can Cance r Socie ty and U.S. Multi -Soci ety Task Force scree russell guide lines recom mend a Colog uard re-sc tiffani mendes inter liz of 3 years . Refer ences : Ameri can Cance r Socie ty Guide line for Color ectal Cance r Scree russell: https ://bernadette w.can cer.o rg/ca ncer/ colon -rect al-ca ncer/ detec tion- diagn osis- stagi ng/ac s-rec ommen datio ns.ht ml.; Eb PLASCENCIA, Quynh castanon CR, Anisha BOWERS, Color ectal Cance r Scree russell: Recom menda tions for Physi cians and Patie nts from the U.S. Multi -Soci ety Task Force on Color ectal Cance r Scree russell , Scott perkins rolog y 2017; 112:1 016-1 030. TEST DESCR IPTIO N: [place] site algor ithmi c bishop sis of stool DNA-b iomar kers with hemog lobin immun oassa y. Quant itati ve value s of indiv idual bioma rkers are not repor table and are not assoc iated with ind idual bioma rker resul t refer ence range s. Colog uard is inten ded for color ectal cance r scree russell of adult s of eithe r sex, 45 years or older , who are at [facility] for color ectal cance r (CRC) . Colog uard has been appro roshan for use by the U.S. FDA. The perfo rmanc e of Colog uard was estab lishe d in a cross secti onal study of [facility] adult s aged 50-84 . Colog uard perfo rmanc e in patie nts ages 45 to 49 years was estim ated by sub-g roup bishop sis of near- age group s. Colon oscop ies perfo rmed for a posit yasmine resul t may find as the most clini iban signi nicho t raffaele n: color ectal cance r [4.0% ], advan leti adeno ma (incl uding sessi le xochitl gayathri polyp s great er than or equal to 1cm diame ter) [20%] or non- advan leti adeno ma [31%] ; or no color ectal neopl nehal [45%] . These estim ates are deriv ed from a prosp ectiv e cross -sect ional scree russell study of 10,00 0 indiv idual s at [facility] risk for color ectal cance r who were scree ludmila with both Colog uard and colon oscop y. (Romina Malik al, N Engl J Med 2014; 370(1 4):12 86-12 97.) Colog uard may produ ce a false negat yasmine or false posit yasmine resul t (no color ectal cance r or preca ncero us polyp prese nt at colon oscop y follo w up). A negat yasmine Colog uard test resul t does not guara ntee the absen ce of CRC or advan leti adeno ma (pre- cance r). The curre nt Colog uard scree russell inter liz is every 3 years . (Ammaribel Bob r Socie ty and U.S. Multi -Soci ety Task Force ). Colog uard perfo rmanc e data in a 10,00 0 patie nt pivot al study using colon oscop y as the refer ence metho d can be acces sed at the follo wing locat ion: www.e xactl abs.c om/re sults . Addit ional descr iptio n of the Colog uard test proce ss, warni ngs and preca ution s can be found at www.c ologu david.c om. Not Available [facility] (Cologuard Orders Only) [address], [place], [address], 04/27/2023 10:09:36 04/29/20 23 05/05/2023 URINE CULTU RE, ROUTI NE urine culture, routine Final report abnormal Not Available [facility] ([facility]) [address] [facility], [place], [address], 05/05/2023 17:07:53 04/29/20 23 05/05/2023 URINE CULTU RE, ROUTI NE result 1 Escher ichia coli abnormal Great er than 100,0 00 colon y formi ng units per mL Cefaz winsome <=4 ug/mL Cefaz winsome with an CHETNA <=16 predi cts susce ptibi lity to the oral agent s cefac erika, cefdi jose ramon, cefpo doxim e, cefpr ozil, cefur oxime , cepha lexin , and lorac arbef when used for thera py of uncom plica gayathri urina ry tract infec tions due to E. coli, Klebs iella pneum oniae , and Prote us mirab ilis. Not Available [facility] ([facility]) [address] [facility], [place], [address], 05/05/2023 17:07:53 04/29/20 23 05/05/2023 URINE CULTU RE, ROUTI NE antimicrobia l susceptibili ty Commen t S = Susce ptibl e; I = Inter media te; R = Resis tant P = Posit yasmine; N = Negat yasmine MICS are expre ssed in micro grams per mL Antib iotic RSLT# 1 RSLT# 2 RSLT# 3 RSLT# 4 Amoxi cilli n/Cla vulan ic Acid S Ampic illin R Cefep jacklyn S Ceftr iaxon e S Cefur oxime S Cipro floxa pedro S Ertap enem S Genta micin S Imipe nem S Levof loxac in S Merop enem S Nitro furan toin S Piper acill in/Ta zobac rubio S Tetra cycli ne S Tobra mycin S Trime thopr im/Segal lfa S Not Available [facility] ([facility]) [address] [place], [address], 05/05/2023 17:07:53 09/18/20 23 09/23/2023 URINE CULTU RE, ROUTI NE urine culture, routine Final report abnormal Not Available [facility] ([facility]) [address] [place], [address], 09/24/2023 00:07:05 09/18/2009/23/2023 URINE CULTU RE, ROUTI NE result 1 Escher ichia coli abnormal Great er than 100,0 00 colon y formi ng units per mL Cefaz winsome <=4 ug/mL Cefaz winsome with an CHETNA <=16 predi cts susce ptibi lity to the oral agent s cefac erika, cefdi jose ramon, cefpo doxim e, cefpr ozil, cefur oxime , cepha lexin , and lorac arbef when used for thera py of uncom plica gayathri urina ry tract infec tions due to E. coli, Klebs iella pneum oniae , and Prote us mirab ilis. Not Available [facility] ([facility]) [address] [place], [address], 09/24/2023 00:07:05 09/18/20 23 09/23/2023 URINE CULTU RE, ROUTI NE antimicrobia l susceptibili ty Commen t S = Susce ptibl e; I = Inter media te; R = Resis tant P = Posit yasmine; N = Negat yasmine MICS are expre ssed in micro grams per mL Antib iotic RSLT# 1 RSLT# 2 RSLT# 3 RSLT# 4 Amoxi cilli n/Cla vulan ic Acid S Ampic illin R Cefep jacklyn S Ceftr iaxon e S Cefur oxime I Cipro floxa pedro S Ertap enem S Genta micin S Imipe nem S Levof loxac in S Merop enem S Nitro furan toin S Piper acill in/Ta zobac rubio S Tetra cycli ne S Tobra mycin S Trime thopr im/Segal lfa S Not Available [facility] ([facility]) [address] [place], [address], 09/24/2023 00:07:05 05/11/20 24 05/13/2024 NUSWA B VAGIN ITIS PLUS (VG+) atopobium vaginae LOW - 0 score Not Available [facility] ([facility]) [address] [place], [address], 05/13/2024 21:07:55 05/11/20 24 05/13/2024 NUSWA B VAGIN ITIS PLUS (VG+) bvab 2 LOW - 0 score Not Available [facility] ([facility]) [address] [place], [address], 05/13/2024 21:07:55 05/11/20 24 05/13/2024 NUA B VAGIN ITIS PLUS (VG+) megasphaera 1 LOW - 0 score Calcu late total score by cj english the 3 indiv idual bacte rial vagin osis (BV) marke r score s toget her. Total score is inter prete d as follo ws: Total score 0-1: Indic ates the absen ce of BV. Total score 2: Indet ermin ate for BV. Addit ional clini patrice data shoul d be evalu ated to estab michaela starr. Total score 3-6: Indic ates the prese nce of BV. Not Available [facility] ([facility])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 Active 2019 MARGE CONNOR Attn: Arina english,[address] [facility], [place], [address], [place] [facility] 0 17:00:59 Constipation 00039257 Active 2019 MARGE CONNOR Attn: Arina english,[address] [facility], [place], [address], [place] [facility] 0 17:02:26 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 Procedures Surgical History Date Name Laterality Status Provider Name and Address Organization Details Recorded Time 1 Myringotomy completed Silverio Leggett MD [address], [address], [place] [facility] 05/22/2021 12:44:42 1 Myringotomy w/Placement of Tube [place], [address], [place] [facility] 04/10/2021 16:04:57 1 Myringotomy w/Placement of Tube completed MD Judy Tinajero, [place], [address], [place] [facility] 02/21/2021 16:01:02 Imaging Results Imaging Date Name Status LastModified by [facility] [place] Details LastModified Time 09/30/2024 DEXA, axial skeleton + vertebral fracture assessment completed [facility] [address] [facility], [place], [address], 10/08/2024 07:55:05 Procedure Notes None recorded. Medical Equipment None Reported. Allergies No known drug allergies Medications Name Sig Start Date Stop Date Status Note LastModified by Organization Details LastModified Time Santyl 250 unit/gram topical ointment apply to cleasned affected area once daily 02/21 completed Not Available Not Available Not Available cyclobenzap rine 10 mg tablet active Not Available Not Available Not Available atorvastati n 40 mg tablet TAKE 1 TABLET BY MOUTH EVERY DAY AT BEDTIME FOR CHOLESTRO L CONTROL active Not Available Not Available No t Available silver sulfadiazin e 1 % topical cream APPLY A 1/16 INCH (1.5 MM) THICK LAYER TO ENTIRE BURN AREA BY TOPICALRO [place] 2 TIMES PER DAY active Not Available Not Available No t Available nitrofurant oin macrocrysta l 50 mg capsule TAKE 1 CAPSULE BY MOUTH DAILY. START WHEN FINISHED WITH ANTIBITOC S 02/10 completed Not Available Not Available Not Available oxybutynin chloride ER 15 mg tablet,exte nded release 24 hr TAKE 1 TABLET BY MOUTH EVERY DAY DIRECTED 08/01 completed Not Available Not Available Not Available tizanidine 2 mg tablet TAKE 1 TABLET BY MOUTH TWICE DAILY NEEDED 02/14 completed Not Available Not Available Not Available albuterol sulfate 2.5 mg/3 mL (0.083 %) solution for nebulizatio n Inhale 3 mL 3 times a day by nebulizat ion route as needed. active Not Available Not Available No t Available dantrolene 25 mg capsule TAKE 1 CAPSULE BY MOUTH EVERY DAY 06/13 completed Not Available Not Available Not Available Normal Saline Flush 0.9 % injection syringe 03/29 completed Not Available Not Available Not Available azithromyci n 250 mg tablet TK 2 TS PO ON DAY 1, THEN TK 1 T PO D FOR 4 DAYS 08/01 completed Not Available Not Available Not Available tizanidine 4 mg tablet TAKE 2 TABLETS BY MOUTH EVERY 8 HOURS NEEDED FOR MUSCLE SPASMS active Not Available Not Available No t Available fluconazole 150 mg tablet TAKE 1 TABLET BY MOUTH EVERY DAY 02/10 completed Not Available Not Available Not Available sulfamethox azole 400 mg-trimetho prim 80 mg tablet TAKE 2 TABLETS BY MOUTH EVERY 12 HOURS FOR 3 DAYS DIRECTED 04/09 completed Not Available Not Available Not Available Nystop 100,000 unit/gram topical powder APPLY TO THE AFFECTED AREA(S) BY TOPICAL ROUTE 2 TIMES PER DAY FOR 10 DAYS active Not Available Not Available No t Available senna 8.6 mg tablet TAKE 2 TABLETS BY MOUTH EVERY DAY AT NOON 02/21 completed Not Available Not Available Not Available fluconazole 200 mg tablet TAKE 1 TABLET BY MOUTH WEEKLY FOR 4 WEEKS 09/21 completed Not Available Not Available Not Available prednisone 20 mg tablet 02/14 completed Not Available Not Available Not Available metronidazo le 500 mg tablet 02/14 completed Not Available Not Available Not Available Vitamin C 500 mg chewable tablet CHEW AND SWALLOW 1 T PO BID WITH MEALS 11/16 completed Not Available Not Available Not Available ciprofloxac in 500 mg tablet TAKE 1 TABLET BY MOUTH TWICE DAILY 02/10 completed Not Available Not Available Not Available sulfamethox azole 800 mg-trimetho prim 160 mg tablet TAKE 1 TABLET BY MOUTH TWICE DAILY WHEN HAVING SYMPTOMS OF URINARY TRACT INFECTION 09/21 completed Not Available Not Available Not Available triamcinolo ne acetonide 0.1 % topical cream APPLY TOPICALLY TO THE AFFECTED AREA DAILY active Not Available Not Available No t Available baclofen 20 mg tablet Take 1 tablet 3 times a day by oral route for 90 days. 02/14 completed Not Available Not Available Not Available ofloxacin 0.3 % ear drops INSTILL 10 DROPS INTO AFFECTED EAR(S) BY OTIC ROUTE ONCE DAILY active Not Available Not Available No t Available methenamine hippurate 1 gram tablet TAKE 1 TABLET BY MOUTH TWICE DAILY WITH VITAMIN-C APSULE TABLET active Not Available Not Available No t Available doxycycline monohydrate 50 mg tablet TAKE 1 TABLET BY MOUTH DAILY 04/09 completed Not Available Not Available Not Available trazodone 100 mg tablet TAKE 1 TABLET BY MOUTH EVERYDAY AT BEDTIME active Not Available Not Available No t Available diazepam 2 mg tablet 02/10 completed Not Available Not Available Not Available phenazopyri dine 100 mg tablet TAKE 1 TABLET BY MOUTH THREE TIMES DAILY FOR 3 DAYS DIRECTED 02/10 completed Not Available Not Available Not Available baclofen 10 mg tablet TAKE 2 TABLETS BY MOUTH THREE TIMES DAILY 02/14 completed Not Available Not Available Not Available doxycycline monohydrate 100 mg capsule 02/14 completed Not Available Not Available Not Available hydrocodone 7.5 mg-acetamin ophen 325 mg tablet Take 1 tablet twice a day by oral route as needed for 30 days. 04/10 completed Not Available Not Available Not Available bisacodyl 10 mg rectal suppository UNW AND I 1 SUP REC HS 11/16 completed Not Available Not Available Not Available cephalexin 500 mg capsule TAKE 1 CAPSULE BY MOUTH EVERY 12 HOURS FOR 7 DAYS active Not Available Not Available No t Available clotrimazol e-betametha sone 1 %-0.05 % topical cream APPLY TOPICALLY TO THE AFFECTED AND SURROUNDI NG AREAS TWICE DAILY IN THE MORNING AND IN THE EVENING FOR 2 WEEKS active Not Available Not Available No t Available gabapentin 300 mg capsule TAKE 1 CAPSULE(S ) EVERY 8 HOURS BY ORAL ROUTE FOR 90 DAYS. 01/27 completed Not Available Not Available Not Available gentamicin 0.1 % topical cream APPLY TOPICALLY TO THE AFFECTED AREA DAILY active Not Available Not Available No t Available mupirocin 2 % topical ointment APPLY TOPICALLY TO THE AFFECTED AREA DAILY active Not Available Not Available No t Available epinephrine 0.3 mg/0.3 mL injection, auto-inject or INJECT 1 PEN IN THE MUSCLE ONE TIME NEEDED DIRECTED active Not Available Not Available No t Available cefuroxime axetil 500 mg tablet 04/09 completed Not Available Not Available Not Available gentamicin 40 mg/mL injection solution INJECT 2 ML TWICE DAILY X 7 DAYS 02/10 completed Not Available Not Available Not Available levofloxaci n 750 mg tablet 04/09 completed Not Available Not Available Not Available albuterol sulfate HFA 90 mcg/actuati on aerosol inhaler INHALE 2 PUFFS BY MOUTH EVERY 6 HOURS NEEDED FOR WHEEZING active Not Available Not Available No t Available ketoconazol e 2 % topical cream APPLY TOPICALLY TO THE AFFECTED AREA DAILY active Not Available Not Available No t Available oxybutynin chloride 5 mg tablet TAKE 1 TABLET BY MOUTH TWICE DAILY DIRECTED active Not Available Not Available No t Available ondansetron 4 mg disintegrat ing tablet DISSOLVE 2 TABLETS ON THE TONGUE TWICE DAILY FOR 5 DAYS NEEDED active Not Available Not Available No t Available clotrimazol e 1 % topical cream APPLY TOPICALLY TO THE AFFECTED AND SURROUNDI NG AREAS TWICE DAILY IN MORNING AND EVENING active Not Available Not Available No t Available metronidazo le 0.75 % topical gel APPLY TO OPEN WOUND WITH EACH DRESSING CHANGE 12/14 completed Not Available Not Available Not Available amoxicillin 875 mg-potassiu m clavulanate 125 mg tablet TAKE 1 TABLET BY MOUTH TWICE DAILY 09/21 completed Not Available Not Available Not Available oxycodone 5 mg tablet TK 1 T EVERY 4 HOURS FOR 30 DAYS PRN 10/24 completed Not Available Not Available Not Available ertapenem 1 gram solution for injection 03/29 completed Not Available Not Available Not Available escitalopra m 10 mg tablet TK 1 T PO D FOR MOOD CONTROL 10/07 completed Not Available Not Available Not Available nitrofurant oin monohydrate /macrocryst als 100 mg capsule TAKE 1 CAPSULE BY MOUTH EVERY 12 HOURS FOR 7 DAYS DIRECTED active Not Available Not Available No t Available solifenacin 5 mg tablet 02/10 completed Not Available Not Available Not Available Benadryl 02/21 completed Not Available Not Available Not Available heparin, porcine (PF) 10 unit/mL intravenous syringe 03/29 completed Not Available Not Available Not Available Symbicort 80 mcg-4.5 mcg/actuati on HFA aerosol inhaler INHALE 2 PUFFS INTO THE LUNGS TWICE DAILY 03/01 completed Not Available Not Available Not Available Probiotic 02/14 completed Not Available Not Available Not Available Myrbetriq 25 mg tablet,exte nded release active Not Available Not Available Not Available Stimulant Laxative Plus 8.6 mg-50 mg tablet TAKE 2 TABLETS BY MOUTH EVERY DAY NEEDED 2024 active Not Available Not Available Not Avai lable Vitals Date Recorded Body height Heart rate Oxygen saturation Oxygen saturation in Arterial blood by Pulse oximetry Systolic blood pressure Diastolic blood pressure Provider Name and Address Organization Details Last Updated DateTime 3 172.72 cm 84 /min 95 % 95 % 104 mm[Hg] 62 mm[Hg] Brandi Gonzales [place] - [facility] 3 15:11:08 Date Recorded Body height Heart rate Systolic blood pressure Diastolic blood pressure Provider Name and Address Organization Details Last Updated DateTime 05/11/2024 172.72 cm 84 /min 107 mm[Hg] 77 mm[Hg] Ewa Banks MA [facility] 05/11/2024 15:34:59 Date Recorded Oxygen saturation Oxygen saturation in Arterial blood by Pulse oximetry Body mass index (BMI) Body weight Provider Name and Address Organization Details Last Updated DateTime 05/11/2024 96 % 96 % 19 kg/m2 13158.05 g MARGE CONNOR Attn: Accounting ,[address] [place], [address] , [facility] 05/25/2024 08:30:03 Date Recorded Body height Heart rate Oxygen saturation Oxygen saturation in Arterial blood by Pulse oximetry Systolic blood pressure Diastolic blood pressure Provider Name and Address Organization Details Last Updated DateTime 172.72 cm 97 /min 97 % 97 % 95 mm[Hg] 77 mm[Hg] Ewa Banks MA [facility] 14:06:02 Social History Question Answer Notes LastModified by [employer] Details LastModified Time Tobacco Smoking Status Former Smoker 1/2 a day when used to smoke Ewa Banks MA null, [facility] 10/07/2020 15:26:48 What Is Your Level Of Alcohol Consumption? None Information not available 10/07/2020 What Is Your Level Of Caffeine Consumption? None Information not available 10/24/2020 In The 14 Days Before Symptom Onset, Have You Had Close Contact With A Laboratory-confi rmed COVID-19 While That Case Was Ill? No Information not available 06/13/2021 In The 14 Days Before Symptom Onset, Have You Had Close Contact With A Person Who Is Under Investigation For COVID-19 While That Person Was Ill? No Information not available 06/13/2021 Have You Been To An Area Known To Be High Risk For COVID-19? No Fuly Vaccinated Information not available 06/13/2021 Do You Or Have You Ever Used E-cigarettes Or Vape? Never Used Electronic Cigarettes Information not available 10/07/2020 Hard Of Hearing Or Deaf In One Or Both Ears? No Information not available 10/07/2020 Legally Blind In One Or Both Eyes? No Information not available 10/07/2020 Live Alone Or With Others? With Others Information not available 10/07/2020 What Was The Date Of Your Most Recent Tobacco Screening? 04/09/2023 Information not available 04/09/2023 How Many Children Do You Have? 4 Information not available 10/07/2020 What Is Your Relationship Status? Information not available 06/13/2021 Do You Have Smoke And Carbon Monoxide Detectors In Your Home? Yes Information not available 06/13/2021 Are You Passively Exposed To Smoke? Yes Information not available 06/13/2021 Do You Or Have You Ever Used Smokeless Tobacco? Never Used Smokeless Tobacco Information not available 10/07/2020 How Much Tobacco Do You Smoke? No Information not available 10/24/2020 General Stress Level Medium Information not available 10/24/2020 Do You Use Any Illicit Or Recreational Drugs? No Has Tried Edibles To Help With Spams, But Didnt Help At All. Information not available 06/13/2021 On What Date Was Tobacco Cessation Counseling Provided? 04/09/2023 Information not available 04/09/2023 Sex: Female Functional Status None recorded. Mental Status None recorded. Family History Relationship Description Onset Age of this Age Resolved Age Notes LastModified by Organization Details LastModified Time Father Hypertensive disorder Not available 2020 11:05:28 Mother Hypertensive disorder Not available 2020 11:05:28 Medical History Condition Response Coronary Artery Disease N Other N Atrial Fibrillation N High Blood Pressure N Depression N COPD N Blood Clots Y Anxiety Disorder N Muscle, Joint, or Bone Problems N Acid Reflux (GERD) N Cancer N Stroke Y High Cholesterol Y Liver Disease N Headaches N Kidney or Bladder Problems N Thyroid Problems N GI Problems N Skin Problems N Anemia N Heart Attack ([place]) N Diabetes N Seizures/Epilepsy N Asthma N Allergies Y Hepatitis N Osteoporosis N Heart Failure N Gynecological History Statement/Question Response Date of Last Pap Smear Date of Last Mammogram Obstetrics History GPAL:G 5 P 4 0 1 4 Type Value Multiple Births 0 Full Term 4 Induced 0 Spontaneous 1 Premature 0 Living 4 Ectopics 0 Total 5 Past Encounters Encounter ID Performer Location Encounter Start Date Encounter Closed Date Diagnosis/Indication Diagnosis SNOMED-CT Code Diagnosis ICD10 Code Diagnosis Note [id number] MARGE CONNOR [facility] [address] [place] [address] 10/07/2020 15:13:59 10/15/2020 18:35:49 Pressure injury of buttock 008552190 L89.309 patient developed back ulcer while in hospital. Patient was given samples on santyl to place on ulcer for 30 days but he has ran out. Needs refill. Home health nurse does come in to change dressing. Patient states he had to teach nurse how to do it as she was not doing it right. - appointmen t at [place] for wound check on Oct 24 am Paraplegia [id number] G82. 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 She is having trouble with her hand and need OT to regain strength. EMG and CT/MRI do not show any damage to that nerve and is expected to recover fully. She will also need PT to continue maintainin g muscle tone in legs. Patient needs pain management . Indwelling urethral urinary catheter in situ 268560185 Z96.0 patient with frequent cath changes after recently becoming paralyzed. has been doing cath changed every 6 hours during the day and 3-4 hours at night. recently her abdomen has hardened. [id number] MARGE CONNOR [facility] [address] [place] [address] 10/24/2020 15:53:40 10/25/2020 09:53:36 Constipation 34378181 K59.00 patient with likely neurogenic constipati on presents to discuss. Her constipati on has improved. She takes two senna daily. We alma try metamucil and fiber to see if this can keep her regular. She has stopped morphine weeks ago. Also advised prune juice. Pressure i njury of buttock 033886663 L89.309 patient went to appointmen t at [place] for wound check on Oct 24 am. Wound is much better and would like her on promogran patches to help heal wound. Spasm 95495652 R25.2 refill for leg spasms [id number] Benjamin Pires MD [facility] [address] [place] [address] 11/16/2020 10:56:02 11/21/2020 17:26:56 Paraplegia 25326261 G82.20 improving from trauma. [id number] Kim Gary MD [facility] [address] [place] [address] 11/17/2020 09:07:10 11/18/2020 22:20:35 [id number] MARGE CONNOR [facility] [address] [place] [address] 12/14/2020 09:12:26 12/16/2020 12:01:14 Pressure injury of buttock 532349663 L89.309 patient developed back ulcer while in hospital. Patient was given samples on santyl to place on ulcer for 30 days but he has ran out. Needs refill. Patient concerned it has gotten bigger and sees garcia once per month. He is advised to reach out to [facility] and or call [facility] wound care since it is closer.- keep clean- have patient off area to avoid added pressure Acute urin chitra tract infection 987787161 N39.0 positive UA- sent for culture- abx- diflucan as she gets yeast infection with antibiotic s- f/u with urology Paraplegia [id number] G82. 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 She is having trouble with her hand and need OT to regain strength. EMG and CT/MRI do not show any damage to that nerve and is expected to recover fully. She will also need PT to continue maintainin g muscle tone in legs. Patient needs pain management . [id number] MARGE CONNOR [facility] [address] [place] [address] 01/26/2021 09:28:35 01/27/2021 13:54:46 Paraplegia [id number] G82.20 patient involved in accident and is now paralyzed from nipple down. She is having trouble with her hand and need OT to regain strength. EMG and CT/MRI do not show any damage to that nerve and is expected to recover fully. She will also need PT to continue maintainin g muscle tone in legs. Patient needs pain management . [facility] [id number] R06.2 [id number] Silverio Leggett MD [facility] [address] [place] [address] 02/21/2021 15:25:08 06/28/2021 08:34:30 Dysfunction of right eustachian tube [id number] 541504 H69.91 [id number] Benjamin Pires MD [address] [address] 03/29/2021 12:06:11 03/30/2021 16:02:29 Urge incontinence of urine 88167552 N39.41 [id number] Silverio Leggett MD [address] [address] 2 04/03/2021 12:12:21 04/05/2021 09:14:27 Dysfunction of right eustachian tube [id number] 768739 H69.91 follow-up in 3 months [id number] Silverio Leggett MD [address] [address] 04/10/2021 15:43:16 06/28/2021 08:41:45 Dysfunction of left eustachian tube 9626413716 798356 H69.92 patient only has a few more episodes in the hyperbaric chamber so I did a myringotom y alone in her left ear [id number] Benjamin Pires MD [facility] [address] [place] [address] 2 05/03/2021 12:05:39 05/04/2021 16:27:37 Urinary incontinence 067654844 R32 has catheter [id number] Silverio Leggett MD [facility] [address] [place] [address] 2 05/22/2021 12:13:14 06/28/2021 08:43:07 Dysfunction of left eustachian tube [id number] 840503 H69.92 patient only has a few more episodes in the hyperbaric chamber so I did a myringotom y alone in her left ear [id number] MARGE CONNOR [facility] [address] [place] [address] 06/13/2021 10:55:25 06/19/2021 10:18:15 Screening mammography 98074608 Z12.31 due for mammogram Paraplegia 47798469 G82. 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 SHe has continues to work with therapy and has gained mobility of upper extremity. She is able to roll over on one side on her own.. Low back pain 694824616 M54.5 Patient having low back pain, likely psoas, according to her chiropract or. She would like to have pain medication to use Saturday and for her therapy. Pain contract signed. prescripti on monitoring reviewed. Paitent understand s side effects. Patient will be bring in urine drug screen sample as she has to be cathed to leave sample. Pressure i njury of buttock 859454895 L89.309 patient continues healing with wound care and is very close to completely healing. She uses laura for wound and intakes whey protein to continue healing.- keep clean- have patient off area to avoid added pressure- continue wound clinic at [facility] [id number] Benjamin Pires MD [facility] [address] [place] [address] 08/02/2021 15:40:54 08/02/2021 18:47:02 Urinary tract infectious disease 97735415 N39.0 History of urinary stone 514143816 Z87.442 screening in light of frequent UTI [id number] Benjamin Pires MD [facility] [address] [place] [address] 08/16/2021 15:06:41 08/18/2021 14:01:01 Indwelling urethral urinary catheter in situ 659489142 Z96.0 Does self cath with help of Retention of urine 97434 4002 R33.9 still has bladder leak spasm Urinary tr act infectious disease 09650696 N39.0 may need short course of Cipro [id number] Benjamin Pires MD [facility] [address] [place] [address] 02/14/2022 15:20:32 04/20/2022 11:07:57 Urinary incontinence 880258265 R32 has catheter [id number] Ewa Banks MA [facility] [address] [place] [address] 02/14/2022 12:01:45 02/15/2022 09:06:08 Acute urinary tract infection 472997492 N39.0 [id number] MARGE CONNOR [facility] [address] [place] [address] 03/01/2022 13:45:35 03/02/2022 09:31:30 Abnormal vision 6804900 H54.7 patient states she cannot see well close up. has not had vision exam. would like referral. cheater glasses help her see somehwat better. Screening mammography 24 319087 Z12.31 due for mammogram Paraplegia 85405801 G82. [address] Kaur through [facility]. has trailed botox with minimal help. She does not feel much help after second treatment. She is prescribed tizanidine 4mg tid (takes it bid as she does not notice much change). Takes one valium at night and hydrocodon e twice per week only when doing therapy. She continues therapy twice weekly. Pressure i njury of buttock 341928858 L89.309 - keep clean- have patient off area to avoid added pressure- continue wound clinic at [facility] weekly [id number] Benjamin Pires MD [facility] [address] [place] [address] 03/21/2022 15:04:32 04/20/2022 09:18:36 Increased frequency of urination 199501350 R35.0 [id number] Val Moy MD [facility] [address] [place] [address] 03/21/2022 15:02:28 05/09/2022 11:59:14 Presbyopia 62972198 H52.4 Bilateral vitreous floaters 9611125219 94975 H43.720 [id number] Benjamin Pires MD [facility] [address] [place] [address] 08/01/2022 14:07:41 08/07/2022 13:53:56 Urinary tract infectious disease 06200400 N39.0 needs short course of Cipro Urinary incontinence 165 633631 R32 has catheter [id number] Benjamin Pires MD [facility] [address] [place] [address] 10/31/2022 13:50:20 11/22/2022 10:22:29 Dysfunctional voiding of urine 116196153 R39.198 dysfunctio nal Cathing of urine with leakage. Will do US complete and UA [id number] Benjamin Pires MD [facility] [address] [place] [address] 01/23/2023 12:13:12 01/23/2023 14:44:35 Recurrent urinary tract infection 589359297 N39.0 [id number] Benjamin Pires MD [facility] [address] [place] [address] 02/06/2023 12:06:46 02/07/2023 08:44:28 Recurrent urinary tract infection 301868281 N39.0 [id number] [facility] [address] [place] [address] 02/20/2023 14:04:32 02/23/2023 14:03:28 Recurrent urinary tract infection 048126348 N39.0 none now [id number] Chantelle Arnold CMA [facility] [address] [place] [address] 03/19/2023 15:50:09 03/19/2023 16:56:44 Cloudy urine 2653465 R82.90 [id number] MARGE CONNOR [facility] [address] [place] [address] 04/09/2023 10:06:05 04/09/2023 11:11:48 Recurrent urinary tract infection 893020102 N39.0 none nownew urology referralca thing q 4 hours [facility] 715225527 Z00.00 - continue seeing ortho- new urology referral sent- labs today- due for mammogram, given order- cologuard ordered- agrees to schedule PAP here HIV screening 150659385 Z11.4 screen Screening mammography 456934 Z12.31 due for mammogram Screening for malignant neoplasm of colon 490862426 Z12.11 declines colonoscop y but does accept cologuardd enies fam hx colon cancer Vitamin D deficiency 347 23429 E55.9 Acute otitis externa 302 60549 H60.509 Edema of l ower extremity 063087009 R60.0 mild swelling of LLE compared to RLE Fracture of knee 1489143 03 S82.90XA left knee fracture. per swelling has improved drasticall y.followin g randall, has f/u saturdaypex: swollen and slightly warm today Depression screening 171 Z13.31 negative [id number] Brandi Gonzales MA [facility] [address] [place] [address] 04/29/2023 09:31:48 04/29/2023 09:39:36 [id number] MARGE CONNOR [facility] [address] [place] [address] 09/18/2023 15:08:57 09/18/2023 15:48:20 Recurrent urinary tract infection 118605588 N39.0 will send to IDpatient wants to try gentamycin powdernew urology referralca thing q 4 hours Fracture of knee 1096127 03 S82.90XA left knee fracture. per swelling has improved drasticall y.followin tameka pereira, has f/u next week to discuss surgery Depression screening 171 Z13.31 negative Night sweats 96218515 R6 1 c/o of sweating at night onlypatien t is pre-menopa usal, has chronic utir/o uti today [id number] MARGE CONNOR [facility] [address] [place] [address] 05/11/2024 15:29:51 05/26/2024 09:49:21 Vaginal discharge 857722692 N89.8 nuswab obtained Screening mammography 842106 Z12.31 due for mammogram Adult heal th examination 579749636 Z00.00 - continue seeing ortho- continue with urology- labs today- due for mammogram, given order- denies depression Dependence on wheel chair 524447067 Z99.3 paralyzed from T4 downneedin g wing scoliosis to push overworkin g with wheelchair company Delroy lópez 555036481 B 35.6 erythema in groin region Paraplegia 13932155 G82. 20 patient paralyzed from T4 downwheel chair bound complicate d by rigidity making it dffcult for her to move her legswould like to see neurosurge on [id number] MARGE CONNOR [facility] [address] [place] [address] 09/21/2024 13:56:52 09/28/2024 14:26:57 Anemia 837682385 D64.9 repeat labwork Osteoporosis 75350806 M8 1.0 patient wheelchair bound and has had fracture of bones. she fractured left knee while standing up last year.follo wing orthoobtai n DEXA Spasm 90433091 R25.2 patient has severe leg spasm Followed with [facility] (Dr Hood): Still having severe episodes of spasms that are worse with change of weather. She has previously described feeling like a snake wrapping and squeezing me lasts 30 -60 seconds. can get mutiple in one day. has them when sleeping but less severe. ortho did btx 200 units for hypertonia 09/18/21, and 300 units given 12/2021 . She does not feel much help after 2 treatment. she has stopped on muscle relaxers due to no help.wants to see new provider for spasms Movement disorder 673907 02 G25.9 physio Allergy to bee venom 424 072086 Z91.030 Hypercalcemia 69736430 E 83.52 [id number] Jolly Dill MA [facility] [address] [place] [address] 02/09/2025 14:04:11 02/09/2025 14:30:25 Dysuria 16395479 R30.0 Health Concerns Section Related Observation LastModified by Organization Bernadette de leon LastModified Time None Recorded Concern Status LastModified by Organization Details LastModified Time None Recorded Advance Directives Directive None Recorded Payers Encounter Date Sequence Insurance Name Policy Number Policy Goldsimth Covered Member ID Goldsmith Member ID Guarantor Name 04/29/2023 1 [place] Nikki Arroyocarolyne [id number] Nikki Mcgraw 04/29/2023 2 [place] OR MEDICARE REPLACEMENT PRIMARY) Nikki Mcgraw [id number] Nikki Mcgraw 09/18/2023 1 [place] Nikki R Cruzcarolyne [id number] Nikki Hilcarolyne 09/18/2023 2 [place] OR [place] REPLACEMENT PRIMARY) Nikki Mcgraw [id number] Nikki Mcgraw 05/11/2024 1 [place] Nikki R Cruzcarolyne [id number] Nikki Mcgraw 05/11/2024 2 [place] REPLACEMENT PRIMARY) Nikki Mcgraw [id number] Nikki Mcgraw 09/21/2024 1 [place] Nikki R Cruzcarolyne [id number] Nikki Mcgraw 09/21/2024 2 [place] OR MEDIC[place] REPLACEMENT PRIMARY) Nikki Mcgraw [id number] Nikki Mcgraw 02/09/2025 1 [place] Nikki R Cruzcarolyne [id number] Nikki Mcgraw 02/09/2025 2 [place] OR MEDIC[place] REPLACEMENT [place]IMARY) Nikki Mcgraw [id number] Nikki Mcgraw Notes Date Note Type Note Provider Name and Address Organization Details Recorded Time 09/18/2023 text/html Nikki presents for f/u with and another family member sees Dr agudelo and patient and family state they would like to go see another urologist. They were told see pcp to continue treating her recurrent UTI. would like to treat nikki with gentamicin powder. Patient fractured left knee . sees ortho for fracture Dr Walker through [facility]. will see him next week to discuss surgery. wound care: Patient has been released from [facility] wound care. says a Nikki c/o of night sweats for a few months. only at night. denies fever or malaise. MARGE CONNOR Attn: Accounting,[address] [facility], [place], [address], [place] 09/22/2023 12:55:06 05/11/2024 text/html Nikki presents for f/u with for f/u She is following urology who placed a suprapubic catheter. She is doing well. notices increased vaginal discharge. has urology f/u urologist may 21 2024. Patient fractured bone. sees ortho for fracture Dr Walker through [facility]. wants to know if they can cut her ligaments that cause her muscle to contract. She could move her legs on her own if they weren't so stiff. MARGE CONNOR Attn: Accounting[address] [facility], [place], [address], [facility] 05/25/2024 08:41:30 09/21/2024 text/html Nikki presents for repeat labs and some concerns Here for anemia workup and hypercalcemia. She stopped taking all her vitamins because she thought it could cause her high calcium. She continues to have spasms that can be painful and disrupt her sleep. She took herself off all muscle relaxers and feels no difference. She has a iron plastic bullet maker and would like to get a second opinion. At last visit her described strong spasm and he has trouble keeping her knees apart at times due to strong contractions. needs epi pen for bees. I have been on my property and I am allergic. MARGE CONNOR Attn: Accounting[address] [facility], [place], [address], [facility] 09/28/2024 11:01:21 OBGyn Episode No OBEpisode recorded.
--- NOTE | 2025-03-10 23:57 | ED.FEMALEGU ---
HPI - Female Genitourinary General Chief complaint: Urogenital-Female Stated complaint: cant get suprapubic catheter out Time Seen by Provider: 03/10/25 23:36 History of Present Illness HPI Narrative: Patient is a 49-year-old female who presents the emergency department this evening a due to an inability to move her suprapubic catheter. Patient has had suprapubic Talbert's since April of last year and prior to that she was straight cathing herself. is the 1 who changes her suprapubic catheter and states that he changes every 2 weeks. Patient follows up with urologist, Dr. Aftab Suazo at [facility] and patient has an upcoming appointment early next week on Saturday. states that he was getting ready to change her suprapubic catheter and could not get it out. Otherwise, patient denies any additional symptoms or concerns. She states that she does have chronic urinary tract infections and her urologist said not to treat it unless she has symptoms which she currently does not have any symptoms of a UTI. Denies any recent illness, any fevers or chills. Related Data Home Medications ?Medication ?Instructions ?Recorded ?Confirmed ?Last Taken ?Type epinephrine 0.3 mg/0.3 mL 0.3 mg IM PRN bee sting 12/06/24 12/06/24 Unknown History injection, auto-injector Allergies Allergy/AdvReac Type Severity Reaction Status Date / Time No Known Allergies Allergy Verified 03/10/25 23:13 Review of Systems Review of Systems: All systems are reviewed and are negative unless stated otherwise in the HPI. [facility] Past Medical History Medical History Healthy female Surgical History Surgical History Hx of tubal ligation History of dilation and curettage Social History Social History Smoking status: Unknown if ever smoked Gender identity (if verbalized by the patient): Female Exam Narrative: General: Alert, awake, afebrile, in no acute distress. HEENT: PERRL, no rhinorrhea, no post nasal drip, oropharynx clear. Neck: Trachea midline, no JVD, no lymphadenopathy. Cardiovascular: Regular rate and rhythm, no murmurs, rubs or gallops, no peripheral edema. Respiratory: Clear to auscultation bilaterally, no tachypnea, no wheezing, no rhonchi, no rubs, no respiratory distress. Abdomen: Soft, nontender, nondistended, no rebound, no guarding, no peritoneal signs, suprapubic site appears clean dry no evidence of infection. Musculoskeletal: No joint swelling or deformity, normal muscle tone. Skin: No rashes or petechia, no signs of infection. Psychiatric: Alert and oriented, normal behavior and judgment for situation. Neurological: Alert and oriented to person, place, and time. Follows all commands. No focal deficits, speech is clear and fluent. MDM - Female Genitourinary MDM Narrative Medical decision making narrative: The patient was evaluated by myself in the emergency department. History is obtained from patient who is an independent historian and physical exam was performed. External medical records were reviewed at this time. Differential diagnosis considerations include tract closure. Multiple attempts to replace the patient's suprapubic Talbert catheter were unsuccessful. At this time, this was discussed with the on-call urologist Dr. Rey at 0035 and he informed me that this is likely secondary to closure of the tract. He recommended placing a urethral Talbert catheter and having the patient follow-up with her urologist as scheduled for upcoming appointment on Saturday as she will likely need another surgery to open up the suprapubic catheter tract. Patient and her who is present at bedside were informed of this plan and they are in agreement. Comorbidities impacting this visit include chronic suprapubic Talbert catheter. I have evaluated and discussed social determinants of health with the patient that could potentially impact subsequent diagnosis and treatment plans. On repeat assessment of the patient, reevaluation revealed that the patient is doing well and is in no acute distress. Patient symptoms have improved since she arrived to our emergency department. Repeat vital signs were all reviewed and noted to be stable. Differential diagnosis and treatment plan were discussed with the patient at bedside. Patient agrees with discussion and after shared medical decision making agrees with discharge. All questions were answered to the patient's satisfaction. Patient will follow up with her Urologist as scheduled for her upcoming appointment on Saturday. Patient was provided with strict return precautions and instructed to return to the emergency department if any new or worsening symptoms develop. The patient was discharged in stable condition. Discharge Plan Discharge Clinical Impression: Chronic indwelling Talbert catheter, Displacement of Talbert catheter Patient Disposition: Home Condition: Improved Instructions: Antibiotic Form, Talbert Catheter Placement and Care (ED) Additional Instructions: Please follow-up with your urologist as scheduled for your upcoming appointment on Saturday. A urethral catheter was placed today given that we were unable to replace your suprapubic Talbert catheter today. Return to the emergency department if any new or worsening symptoms develop. Patient Language: Bolivian Prescriptions: No Action epinephrine 0.3 mg/0.3 mL auto-injector 0.3 mg IM PRN cephalexin 500 mg capsule 500 mg PO Q12H 7 Days Qty: 14 0RF Follow-up/Referrals: Gely,MARGE Blair [Primary Care Provider] - 1 Week Time of Disposition: 00:47
--- OUTSIDE RECORDS SUMMARY | 2025-03-10 23:59 | XMS_ITS | Clinical Summary ---
Author Organization [facility] Address [address] [place] [address] Care Team Providers Care Glass Toughening Operator Name Role Phone Brit Hong PA-C Primary Care Provider +[phone] James Peñaloza MD Unavailable Unavailable Allergies Active [...] [place]ER[place] (dyspnea on exertion) 02/01/2021 Respiratory failure ([facility]) 02/01/2021 CVA (cerebral vascular accident) ([facility]) 01/20/2021 Paraplegia ([facility]) 01/20/2021 PICC (peripherally inserted central catheter) in place 01/20/2021 Osteomyelitis of vertebra, s acral and sacrococcygeal region ([facility]) 01/16/2021 Acute osteomyelitis of sacrum ([facility]) 01/10/2021 Pressure injury of sacral region, stage 4 2019 Acute respiratory failure wi th hypoxia and hypercapnia ([facility]) 07/23/2020 Adrenal hemorrhage ([facility]) 07/23/2020 Closed fracture of seventh c ervical vertebra with routine healing 07/23/2020 Closed fracture of transvers e process of thoracic vertebra with routine healing 07/23/2020 Closed nondisplaced fracture of body of right sc apula 07/23/2020 Closed traumatic compression fracture of thoracic vertebra ([facility]) 07/23/2020 Contusion of both lungs 07/23/2020 Crush injury 07/23/2020 Lung laceration 07/23/2020 Multiple fractures of ribs, bilateral, initial encounter for closed fracture 07/23/2020 Traumatic injury of spinal c ord at T1-T6 level ([facility]) 07/23/2020 Immunizations Immunization Administration Dates Next [...] Comments Blood Pressure 98/61 12/31/2023 1:55 PM SUPERVISOR PLATE PASTING Pulse 112 12/31/2023 1:55 PM SUPERVISOR PLATE PASTING Temperature 36.3 C (97.4 F) 12/31/2023 1:55 PM SUPERVISOR PLATE PASTING Respiratory Rate 16 12/31/2023 1:55 PM SUPERVISOR PLATE PASTING Oxygen Saturation 99% 12/31/2023 1:55 PM SUPERVISOR PLATE PASTING Inhaled Oxygen Concentration - - Weight 65.5 kg (144 lb 6.4 oz) 03/09/2023 5:15 A M CDT Height 172.7 cm (5' 8 ) 12/31/2023 1:55 PM SUPERVISOR PLATE PASTING p t stated Body Mass Index 21.96 [...] 5 season) 2024 03/22/2021, 03/02/2021 PHQ-2 (Physician [place]) 11/25/2024 12/31/2023 Cervical Cancer Screening Pa p [...] and discharge planning Lifestyle No Nataliia Durbin, AEROSOL LINE OPERATOR Additional Health Concerns Infection Onset Date Last Indicated ESBL - Extended Spectrum Bet a-lactamase Comment:05/22/21 +ESBL Coccyx 05/25/2021 05/25/2021 Insurance MEDICAID MEDICARE Advance Directives Documents on File Type Date Recorded Patient Wire Strander Expl anation Power of Primary Teaching Assistant 05/29/2023 1:23 PM [place] [facility] [facility] Power of Primary Teaching Assistant 02/03/2021 1:56 PM Healt h POA 02.03.21 * Full Code (Latest Code Status on File) Date Activated Date Inactivated Comments 03/08/2023 8:33 PM 03/11/2023 5:35 PM Care Teams Glass Toughening Operator Relationship Specialty Start Date End Date Brit Hong PA-C [facility] [place] [address] PCP - General NURSE PRACTITIONER 09/21/20 James Peñaloza MD [address] [place] [id number] Referring Physician Specialist 01/18/21
--- OUTSIDE RECORDS SUMMARY | 2025-03-10 23:59 | XMS_ITS | Encounter Summary ---
Author Organization [facility] Address [facility] [place] [address] Care Team Providers Care Credit Charge Authorizer Name Role Phone Brit Hong PA-C Primary Care Provider +1 [phone] James Peñaloza MD Unavailable Unavailable Encounter Details Date Type Department Care Team (Late st Contact Info) Description 08/14/2024 MyChart Message Enc [facility] [place], [place] [address] Maryan Jeffries NP [address] [place], [place] [id number] Antibiotic Social History Tobacco Use Types Packs/Day [...] and discharge planning Lifestyle No Nataliia Durbin, COLOR DEVELOPER documented as of this encounter Visit Diagnoses Not on filedocumented in this encounter Additional Health Concerns Infection Onset Date Last Indicated Resolved Time ESBL - Extended Spectrum Bet a-lactamase Comment:05/22/21 +ESBL Coccyx 05/25/2021 05/25/2021 Assessment Noted Time PHQ-9 Depression Total Score: 1 08/01/20 21 11:44 AM CDT documented as of this encounter Care Teams Credit Charge Authorizer Relationship Specialty Start Date End Date Brit Hong PA-C [address] [place] [address] PCP - General NURSE PRACTITIONER 09/21/20 James Peñaloza MD [address] [place] [address] Referring Physician Specialist 01/18/21 documented as of this encounter
--- OUTSIDE RECORDS SUMMARY | 2025-03-11 | XMS_ITS | Encounter Summary ---
Author Organization [facility] Address [address] [place] [address] Phone Care Team Providers Care Title I Paraprofessional Name Role Phone Provider, None Primary Care [...] (Late st Contact Info) Description 06/26/2022 Telephone [facility] at [facility] [address] [place] [phone] Brianna Gutierrez, OT [place] Appointment (Patient called [...] 03/29/2025 1:00 PM CDT Outpatient Clinic Visit [facility] Health Services 1 [place] [address] Umair Li PSYD [place] Discharge Disposition: Discharged to home or Selfcare 04/28/2025 1:45 PM CDT Outpatient Clinic Visit [facility] Health Services 1 [place] [address] Umair Li PSYD [place] Discharge Disposition: Discharged to home or Selfcare documented as of this encounter Visit Diagnoses Not on filedocumented in this encounter Care Teams Title I Paraprofessional Relationship Specialty Start Date End Date Provider, None [place] PCP - General 05/02/22 documented as of this encounter
--- OUTSIDE RECORDS SUMMARY | 2025-03-11 | XMS_ITS | Clinical Summary ---
Author Organization [facility] Address [address] [place] [address] Care Team Providers Care Mineral Industry Teacher Name Role Phone Provider, None Primary Care Provider Unavailabl e Allergies No known active allergies Medications No known medications Active Problems Problem Noted Date Diagnosed Date Paralysis Encounters Date Type Department Care Team Description 02/23/2025 1:00 PM CDT [facility] [address] [place] [phone] Umair Li PSYD Major depressive disorder, recurrent, mild (HCC) (Primary Dx) Discharge Disposition: Discharged to home or Selfcare 02/23/2025 Travel 02/02/2025 1:00 PM CDT Outpatient Clinic Visit [facility] Behavioral Health Services 1 [place] [address] Umair Li PSYD Major depressive disorder, recurrent, mild (HCC) (Primary Dx) Discharge Disposition: Discharged to home or Selfcare 02/01/2025 Travel 01/05/2025 1:00 PM TELEPHONE DIRECTORY DISTRIBUTOR DRIVER Outpatient Clinic Visit [facility] Behavior[facility] Health Services 1 [place] [address] Umair Li PSYD Adjustment disorder with depressed [...] 03/29/2025 1:00 PM CDT [facility] 1 [place] [address] Umair Li PSYD [place] Discharge Disposition: Discharged to home or Selfcare 04/28/2025 1:45 PM CDT [facility] 1 [place] [address] Umair Li PSYD [place] Discharge Disposition: Discharged [...] to live in fear. Insurance MEDIC[place] [address] Care Teams Mineral Industry Teacher Relationship Specialty Start Date End Date Provider, None [place] PCP - General 05/02/22
--- OUTSIDE RECORDS SUMMARY | 2025-03-11 | XMS_ITS | Referral Summary ---
Author Organization [facility] Address [address] [place] [address] Care Team Providers Care Mechanic Sound Technician Name Role Phone Brit Hong Primary Care Provider + Shaista Maria DPT Unavail able Encounters Date Type Department Care Team Description 03/04/2025 8:22 PM CDT - 03/04/2025 10:24 PM CDT Emergency [facility] Emergency Department [address] [place] [address] Suprapubic catheter dysfunction, initial encounter (Primary Dx); Abnormal urinalysis Discharge Disposition: Discharge to home or self care 02/18/2025 Telephone [facility] Urology [address] [place] [address] Advanced Medicine 11th [place] [address] [place] [phone] Federico Mark 02/17/2025 10:20 AM CDT Telemedicine [facility] Urology [address] [facility] [address] [place] [address] Aftab Suazo MD Neurogenic bladder (Primary Dx); Obstruction of Moctezuma catheter, subsequent encounter 02/09/2025 Telephone [facility] Urology [address] [facility] [address] [place] [address] Mckenzie Campos MD 02/09/2025 Telephone [facility] Surgery [address] [place] [address] Miesha Modi, [facility] 02/01/2025 2:11 PM CDT - 02/01/2025 11:59 PM CDT Hospital Encounter [facility] [address] [place] [address] Krysta Chung MD Encounter for well woman [...] 01/31/2024 Assessment & Plan (01/31/2024 9:25 AM STOREKEEPER ENGINEERING): - Last Pap NILM, HPV pos 12/2023 [...] 11/28/2023 Assessment & Plan (01/31/2024 9:29 AM STOREKEEPER ENGINEERING): Concern for postmenopausal bleeding Spotting episodes that patient and partner believe are due to self- catheterization Pelvic US performed, reviewed findings with patient, EMS 5.9 mm, counseling provided thickened in postmenopausal patient Offered EMB Patient defers for now and prefers to monitor her symptoms with consideration for EMB with additional episodes Assessment & Plan (11/30/2023 10:27 AM STOREKEEPER ENGINEERING): -pt reports last menstrual period was 11/2022, spouse reports she has had a couple episodes of light bleeding since. Will obtain pelvic US. Fracture of tibial plateau 07/16/2023 Paralysis 03/14/2023 03/14/2023 E. coli UTI 03/09/2023 03/14/2023 Recurrent UTI 03/08/2023 03/14/2023 Assessment & Plan (11/30/2023 10:32 AM STOREKEEPER ENGINEERING): She was instructed to call our office [...] 08/28/2021 Assessment & Plan (11/30/2023 10:30 AM STOREKEEPER ENGINEERING): -currently on Myrbetriq and performs intermittent CISC, [...] on file Legal Sex Female 6:23 PM STOREKEEPER ENGINEERING Gender Identity Not on file Sexual Orientation [...] cm (5' 9 ) 10/28/2024 1:41 PM STOREKEEPER ENGINEERING Body Mass Index 22.14 10/28/2024 1:41 PM STOREKEEPER ENGINEERING Plan of Treatment Not on file Procedures [...] DETECTION WITH GENOTYPING Routine 01/02/2024 11:03 AM STOREKEEPER ENGINEERING Screening for cervical cancer from Last 3 [...] tendency for uric acid stone formation. Source: [employer] Current Interpretive Data was last revised on [...] [facility] ([place]) Leukocyte esterase, ur 3+(A) Negative [facility] ([place]) UA reflex comment Reflex to microscopic UA will be performed. [facility] ([place]) Urine 03/04/2025 9:43 PM CDT 03/04/2025 9:47 PM CDT [facility] MICROBIOLOGY - GENERAL ORDERABLES Final Result Performing Organization Address [facility] de Phone Number [facility] ([place]) [address] [place] [address] [place] [address] * (ABNORMAL) Urinalysis, microscopic only (03/04/2025 9:43 PM CDT) WBC, ur 0-5 0 - 5 /HPF RBC, ur 0-2 0 - 2 /HPF [facility] ([place]) Amorphous crystals, ur Trace(A) [facility] ([place]) Culture Reflex Comment Reflex conditions for urine culture (WBC >10) not met. [facility] ([place]) Urine 03/04/2025 9:43 PM CDT 03/04/2025 9:47 PM CDT [facility] URINE ORDERABLES Final Result Performing Organization Address [facility] de Phone Number [facility] ([place]) [address] [place] [address] [place] [address] * Screening Mammogram Bilateral W Pavan (02/01/2025 [...] BI-RADS CATEGORY 1: Negative. Krysta Chung MD [facility] PROCEDURES F inal Result * (ABNORMAL) High Risk HPV DNA Detection with Genotyping (Molecular component) (01/02/2024 11:03 AM STOREKEEPER ENGINEERING) HPV HR 16 Not Detected Not Detected [facility] HPV HR 18 Not Detected Not Detected [facility] HPV HR Non 16/18 Detected(A) Not Detected [facility] Comment: Interpretive Data Nucleic acid amplification for [...] this test have been verified by the [facility] Molecular Infectious Disease laboratory. Correlate with separately reported cytology results, as applicable. Interpretive data last revised 23 Endocervical 01/02/2024 11:0 3 AM STOREKEEPER ENGINEERING 01/08/2024 3:52 PM STOREKEEPER ENGINEERING Narrative [facility] - 01/09/2024 4:24 AM STOREKEEPER ENGINEERING Clinical history and diagnosis->last pap sparsely cellular sample with positive HPV Testing type->Screening Last menstrual period (date if known)->Unknown Menstrual status->Irregular Marce Carpenter NP LAB BODY FLUIDS AND STOOLS ORD ERABLES Final Result [facility] Department [place] [address] from Last 3 Months or Most Recently Relevant to Health Maintenance Insurance [facility] MEDICARE MEDICARE IDIL Care Teams Mechanic Sound Technician Relationship Specialty Start Date End Date Brit Hong PA PCP - General Physician Clinical Psychology Professor 04/28/21 Shaista Maria DPT [address] [facility], [address] [address] Physical Therapist Physical Therapy 01/29/24
--- OUTSIDE RECORDS SUMMARY | 2025-03-11 | XMS_ITS | Encounter Summary ---
Author Organization [facility] Address [address] [place] [address] Phone Care Team Providers Care Buffing Wheel Presser Name Role Phone Provider, None Primary Care Provider Unavailabl e Encounter Details Date Type Department Care Team (Late st Contact Info) Description 02/05/[address] [facility] Services 1 [place] [phone] Umair Li PSYD [place] Social History Tobacco [...] 03/29/2025 1:00 PM CDT Outpatient Clinic Visit [facility] 1 [place] [address] Umair Li PSYD [place] Discharge Disposition: Discharged to home or Selfcare 04/28/2025 1:45 PM CDT Outpatient Clinic Visit [facility] [address] [place] [address] Umair Li PSYD [place] Discharge [...] on filedocumented in this encounter Care Teams Buffing Wheel Presser Relationship Specialty Start Date End Date Provider, None [place] PCP - General 05/02/22 documented as of this encounter
--- OUTSIDE RECORDS SUMMARY | 2025-03-11 | XMS_ITS | Encounter Summary ---
Author Organization [facility] Address [address] [facility] [place] [address] Phone Care Team Providers Care Plate Fitter Name Role Phone Provider, None Primary Care Provider Unavailabl e Encounter Details Date Type Department Care Team ( Contact Info) Description 09/10/2023 Behavioral Health Patient Survey [facility] Behavioral Health Services 1 [place] [phone] Umair Li, [place] Social History Tobacco Use Types Packs/Day Years [...] 03/29/2025 1:00 PM CDT Outpatient Clinic Visit [facility] Behavioral Health Services [address] [facility] [place] [address] Umair Li PSYD [place] Discharge Disposition: Discharged to home or Selfcare 04/28/2025 1:45 PM CDT [facility] 1 [facility] [place] [address] Umair Li PSYD [place] Discharge Disposition: Discharged [...] on filedocumented in this encounter Care Teams Plate Fitter Relationship Specialty Start Date End Date Provider, None [place] PCP - General 05/02/22 documented as of this encounter
--- OUTSIDE RECORDS SUMMARY | 2025-03-11 | XMS_ITS | Encounter Summary ---
Author Organization [facility] Address [address] [facility] [place] [address] Phone Care Team Providers Care Miter Operator Name Role Phone Provider, None Primary Care Provider Unavailabl e Encounter Details Date Type Department Care Team (Late st Contact Info) Description 04/02/2024 Behavioral Health Patient Survey [facility] Behavioral Health Services [address] [place] [phone] Umair Li PSYD [place] Social History Tobacco Use Types Packs/Day Years [...] 03/29/2025 1:00 PM CDT Outpatient Clinic Visit [facility] Health Services [address] [place] [phone] Umair Li PSYD [place] Discharge Disposition: Discharged to home or Selfcare 04/28/2025 1:45 PM CDT Outpatient Clinic Visit [facility] Services [address] [place] [phone] Umair Li PSYD [place] Discharge Disposition: Discharged [...] on filedocumented in this encounter Care Teams Miter Operator Relationship Specialty Start Date End Date Provider, None [place] PCP - General 05/02/22 documented as of this encounter
--- OUTSIDE RECORDS SUMMARY | 2025-03-11 | XMS_ITS | Clinical Summary ---
Author Organization [facility] Address [address] [address] Care Team Providers Care Administrative Judge Name Role Phone Brit Hong PA-C Primary Care Provider Jeny Zhao MD Unavailable [phone] Jeny Zhao MD Unavailable [phone] Source Comments [facility],non-owned Affiliates and Associated Physician Practices is amultiple site organization consisting of ambulatory clinics and hospital sitesin [place], [place], [place] and [place]. This disclosure is being madepursuant to the Care Everywhere program and may not contain all information available regarding this patient. Last updated 18.[facility] Allergies No known active allergies Medications [...] patient's age to complete this topic Insurance [facility] Care Teams Administrative Judge Relationship Specialty Start Date End Date Brit Hong PA-C [address] [place] [phone] PCP - General 02/15/21 Jeny Zhao MD [address] [place] [phone] Resident Student Resident 03/30/21 Jeny Zhao MD [address] [place] [phone] Resident Student Resident 04/03/21
--- OUTSIDE RECORDS SUMMARY | 2025-03-11 | XMS_ITS | Encounter Summary ---
Author Organization [facility] Address [address] [facility] [place] [address] Phone Care Team Providers Care Regional Marketing Director Name Role Phone Provider, None Primary Care Provider Unavailabl e Encounter Details Date Type Department Care Team (Late st Contact Info) Description 12/27/2023 Behavioral Health Patient Survey [facility] Behavioral Health Services 1 [place] [phone] Umair Li PSYD [place] Social History Tobacco [...] 03/29/2025 1:00 PM CDT Outpatient Clinic Visit [facility] Health Services 1 [place] [address] Umair Li PSYD [place] Discharge Disposition: Discharged to home or Selfcare 04/28/2025 1:45 PM CDT Outpatient Clinic Visit [facility] Health Services 1 [place] [address] Umair Li PSYD [place] Discharge Disposition: Discharged to home or Selfcare [...] on filedocumented in this encounter Care Teams Regional Marketing Director Relationship Specialty Start Date End Date Provider, None [place] PCP - General 05/02/22 documented as of this encounter
--- OUTSIDE RECORDS SUMMARY | 2025-03-11 | XMS_ITS | Clinical Summary ---
Author Organization [facility] Address [address] [place] [address] Care Team Providers Care Cargo Router Name Role Phone Brit Hong Primary Care [...] 01/31/2024 Assessment & Plan (01/31/2024 9:25 AM CANNING MACHINE OPERATOR): - Last Pap NILM, HPV pos 12/2023 [...] 11/28/2023 Assessment & Plan (01/31/2024 9:29 AM CANNING MACHINE OPERATOR): Concern for postmenopausal bleeding Spotting episodes that patient and partner believe are due to self- catheterization Pelvic US performed, reviewed findings with patient, EMS 5.9 mm, counseling provided thickened in postmenopausal patient Offered EMB Patient defers for now and prefers to monitor her symptoms with consideration for EMB with additional episodes Assessment & Plan (11/30/2023 10:27 AM CANNING MACHINE OPERATOR): -pt reports last menstrual period was 11/2022, spouse reports she has had a couple episodes of light bleeding since. Will obtain pelvic US. Fracture of tibial plateau 07/16/2023 Paralysis 03/14/2023 03/14/2023 E. coli UTI 03/09/2023 03/14/2023 Recurrent UTI 03/08/2023 03/14/2023 Assessment & Plan (11/30/2023 10:32 AM CANNING MACHINE OPERATOR): She was instructed to call our office [...] 08/28/2021 Assessment & Plan (11/30/2023 10:30 AM CANNING MACHINE OPERATOR): -currently on Myrbetriq and performs intermittent CISC, [...] CDT - 03/04/2025 10:24 PM CDT Emergency [facility] Emergency Department [address] [place] [address] Suprapubic catheter dysfunction, initial encounter (Primary Dx); Abnormal urinalysis Discharge Disposition: Discharge to home or self care 02/18/[address] [facility] Urology [address] [place] [address] Advanced Medicine 11th [place] [address] [place] [address] Federico Mark 02/17/2025 10:20 AM CDT Telemedicine [facility] Urology [address] [facility] [address] [place] [address] Aftab Suazo MD Neurogenic bladder (Primary Dx); Obstruction of Moctezuma catheter, subsequent encounter 02/09/2025 Telephone [facility] Urology [address] [facility] Medical [address] [place] [phone] Mckenzie Campos MD 02/09/2025 Telephone [facility] [address] [place] [address] Miesha Modi, [facility] 02/01/2025 2:11 PM CDT - 02/01/2025 11:59 PM CDT Hospital Encounter [facility] [address] [place] [address] Krysta Chung MD Encounter for well woman [...] on file Legal Sex Female 6:23 PM CANNING MACHINE OPERATOR Gender Identity Not on file Sexual Orientation [...] cm (5' 9 ) 10/28/2024 1:41 PM CANNING MACHINE OPERATOR Body Mass Index 22.14 10/28/2024 1:41 PM CANNING MACHINE OPERATOR Plan of Treatment Health Maintenance Due Date [...] DETECTION WITH GENOTYPING Routine 01/02/2024 11:03 AM CANNING MACHINE OPERATOR Screening for cervical cancer from Last 3 Months or Most Recently Relevant to Health Maintenance Results * (ABNORMAL) Urinalysis reflex to microscopic and culture Urine (03/04/2025 9:43 PM CDT) Color, ur Straw Yellow Clarity, ur Clear Clear [facility] ([place]) Specific gravity, ur 1.003 1.003 - 1.030 [facility] ([place]) pH, urine 7.5 [facility] Comment: Interpretive Data U rine pH is affected by diet, medications, systemic acid-base disturbances, and renal tubular function. pH may affect urinary stone formation. For example, urine pH below 6.0 may help reduce the tendency for calcium phosphate stones and pH greater than 6.0 may reduce the tendency for uric acid stone formation. Source: [place] [employer] Current Interpretive Data was last revised on [...] ([place]) Leukocyte esterase, ur 3+(A) Negative [facility] ([place]) UA reflex comment Reflex to microscopic UA will be performed. [facility] ([place]) Urine 03/04/2025 9:43 PM CDT 03/04/2025 9:47 PM CDT [facility] MICROBIOLOGY - GENERAL ORDERABLES Final Result Performing Organization Address [facility] Co de Phone Number [facility] ([place]) [address] [facility] Department [place] [address] * (ABNORMAL) Urinalysis, microscopic only (03/04/2025 9:43 PM CDT) WBC, ur 0-5 0 - 5 /HPF RBC, ur 0-2 0 - 2 /HPF [facility] ([place]) Amorphous crystals, ur Trace(A) [facility] ([place]) Culture Reflex Comment Reflex conditions for urine culture (WBC >10) not met. [facility] ([place]) Urine 03/04/2025 9:43 PM CDT 03/04/2025 9:47 PM CDT [facility] URINE ORDERABLES Final Result Performing Organization Address [facility] Co de Phone Number [facility] ([place] [address] [place] [address] [place] [address] * Screening Mammogram Bilateral W Pavan (02/01/2025 [...] with Genotyping (Molecular component) (01/02/2024 11:03 AM CANNING MACHINE OPERATOR) HPV HR 16 Not Detected Not Detected [facility] HPV HR 18 Not Detected Not Detected [facility] HPV HR Non 16/18 Detected(A) Not Detected [facility] Comment: Interpretive Data Nucleic acid amplification [...] this test have been verified by the [facility] Molecular Infectious Disease laboratory. Correlate with separately reported cytology results, as applicable. Interpretive data last revised 23 Endocervical 01/02/2024 11:0 3 AM CANNING MACHINE OPERATOR 01/08/2024 3:52 PM CANNING MACHINE OPERATOR Narrative [facility] - 01/09/2024 4:24 AM CANNING MACHINE OPERATOR Clinical history and diagnosis->last pap sparsely cellular sample with positive HPV Testing type->Screening Last menstrual period (date if known)->Unknown Menstrual status->Irregular Marce Carpenter NP LAB BODY FLUIDS AND STOOLS ORD ERABLES Final Result [facility] Department [place] [address] from Last 3 Months or Most Recently Relevant to Health Maintenance Insurance [facility] MEDICARE MEDICARE [place] Care Teams Cargo Router Relationship Specialty Start Date End Date Brit Hong PA PCP - General Physician Ase Certified Technician 04/28/21 Shaista Maria DPT [address] [facility], [address] [address] Physical Therapist Physical Therapy 01/29/24
--- OUTSIDE RECORDS SUMMARY | 2025-03-11 | XMS_ITS | Clinical Summary ---
Author Organization [facility] Address [address] [place] [phone] Phone Care Team Providers Care Rn Internal Medicine Name Role Phone Unavailable Primary Care Provider [...] (#1) 2024 Medical Devices Implanted Type Area Cold Roller Device Identifier Shelf Expiration Date Model / Serial / Lot Hemostatic Surgiflo 8ml W/Thrombin 299 - [id number] Implanted:Qty: 1 on 07/23/2020 by Reece Contreras MD at [facility] Hemostatic N/A: Back [employer] 04/24/2021 2994 / / [id number] Hemostatic Surgifoam Sz100 1973 - [id number] Implanted:Qty: 1 on 07/23/2020 by Reece Contreras MD at [facility] Hemostatic [employer]- [employer] 10/26/20231973 / / [id number] Plate Senior Care Iexp Ti 25-40mm 366-- - [id number] Implanted:Qty: 2 on 07/23/2020 by Reece Contreras MD at [facility] Plate N/A: Back [employer] / / LOAD#23; STERILIZED 07/23/2020 Cocr Rods Implanted:Qty: 2 on 07/23/2020 by Reece Contreras MD at [facility] Armando N/A: Back [employer] - / [id number] / LOAD # 23; STERILIZED 07/23/2020 Screw Xpdm Verse 5x45mm - [id number] Implanted:Qty: 5 on 07/23/2020 by Reece Contreras MD at [facility] Screw N/A: Back [employer] / / LOAD #4/12; STERILIZED 07/19/2020 Set Screw Xpdm Verse 5.5mm - [id number] Implanted:Qty: 8 on 07/23/2020 by Reece Contreras MD at [facility] Screw N/A: Back [employer] / / LOAD #4/12; STERILIZED 07/19/2020 Screw Iexp Ti Senior Care X25 200 - [id number] Implanted:Qty: 4 on 07/23/2020 by Reece Contreras MD at [facility] Screw N/A: Back [employer] 59503-24 / / LOAD#23; STERILIZED 07/23/2020 Description:All [employer] spinal hardware was processed on requisition [id number]. Screw Xpdm Verse 5x40mm - [id number] Implanted:Qty: 3 on 07/23/2020 by Reece Contreras MD at [facility] Screw N/A: Back [employer] [id number] / / LOAD #4/12; STERILIZED 07/19/2020 Hex Nut Iexp Ti Senior Care 3/8in 1754-30-100 - [id number] Implanted:Qty: 4 on 07/23/2020 by Reece Contreras MD at [facility] Spine N/A: Back [employer] 1754-30-100 / / LOAD#23; STERILIZED 07/23/2020 J-Hook Iexp 55 Ti Senior Care X25 1754-30-255 - [id number] Implanted:Qty: 4 on 07/23/2020 by Reece Contreras MD at [facility] Spine N/A: Back [employer] 1750-30-255 / / LOAD#23; STERILIZED 07/23/2020 Bone Chips Canc 30ml [id number] - [id number] Implanted:Qty: 1 on 07/23/2020 by Reece Contreras MD at [facility] Tissue N/A: Back [employer] [id number] 03/12/2025 [id number] / / [id number] Bone Chips Canc 30ml [id number] - [id number] Implanted:Qty: 1 on 07/23/2020 by Reece Contreras MD at [facility] Tissue N/A: Back [employer] [id number] 03/12/2025 [id number] / / [id number] Allograft Vivigen Matrix 10ml Bl-1500-003 - [id number] Implanted:Qty: 1 on 07/23/2020 by Reece Contreras MD at [facility] Tissue LIF[employer]ET 07/11/2021 BL-1500-003 / [id number] / Allograft Vivigen Matrix 10ml Bl-1500-003 - [id number] Implanted:Qty: 1 on 07/23/2020 by Reece Contreras MD at [facility] Tissue [employer]ET 07/07/2021 BL-1500-003 / [id number] / Allograft Vivigen Matrix 10ml Bl-1500-003 - [id number] Implanted:Qty: 1 on 07/23/2020 by Reece Contreras MD at [facility] Tissue [employer]ET 07/11/2021 [facility]1500-003 / [id number] / Allograft Vivigen Matrix 10ml [facility]1500-003 - [id number] Implanted:Qty: 1 on 07/23/2020 by Reece Contreras MD at [facility] Tissue [employer] 07/11/2021 [facility]1500-003 / [id number] / Insurance MEDICAID [place] Advance Directives For more information, please contact: [phone] * Full Code (Latest Code Status on File) Date Activated Date Inactivated Comments 07/23/2020 11:30 PM 08/23/2020 1:53 PM
--- OUTSIDE RECORDS SUMMARY | 2025-03-11 | XMS_ITS | Encounter Summary ---
Author Organization [facility] Address [address] [place] [address] Phone Care Team Providers Care Survey Workers Supervisor Name Role Phone Provider, None Primary Care Provider Unavailabl e Encounter Details Date Type Department Care Team (Late st Contact Info) Description 11/08/2023 Behavioral Health Patient Survey [facility] [address] [place] [id number] Umair Li PSYD [place] Social History Tobacco [...] 03/29/2025 1:00 PM CDT Outpatient Clinic Visit [facility] [address] [place] [phone] Umair Li PSYD [place] Discharge Disposition: Discharged to home or Selfcare 04/28/2025 1:45 PM CDT Outpatient Clinic Visit [facility] [address] [place] [address] Umair Li PSYD [place] Discharge Disposition: Discharged to home or Selfcare [...] on filedocumented in this encounter Care Teams Survey Workers Supervisor Relationship Specialty Start Date End Date Provider, None [place] PCP - General 05/02/22 documented as of this encounter
[2025-03-11 00:15] VITALS: BP 104/81; O2SAT 100
[2025-03-11 00:17] VITALS: BP 115/55; O2SAT 100
[2025-03-11 00:18] VITALS: O2SAT 100
--- NOTE | 2025-03-11 00:28 | PC.NURSE ---
Pt presents to ED c/o difficulty inserting chronic suprapubic Talbert catheter. Pt states she uses 16fr w/ 10cc balloon, attempted to insert catheter by this RN with no success.
[2025-03-11 00:31] VITALS: BP 101/69; O2SAT 100
[2025-03-11 01:01] VITALS: BP 115/70; O2SAT 100
--- NOTE | 2025-03-11 01:10 | PC.NURSE ---
Talbert urethral catheter placed, x1 occurrence draining WNL 16fr 5cc
== END 2025-03-11 01:30 | disposition home or self-care (01) ==
PROVIDERS: Emergency Provider Emergency Medicine; PCP Physician Assistant
DX: T83.020A Displacement of cystostomy catheter, initial encounter (principal); Y84.6 Urinary catheterization as the cause of abnormal reaction of the patient, or of later complication, without mention of misadventure at the time of the procedure; Z87.440 Personal history of urinary (tract) infections
CPT/HCPCS: 51702; 51705; 99283